=== PATIENT | female | born 1990 | race Caucasian/White ===

== ENCOUNTER 2019-07-09 | Emergency (ER) | payer SELFPAY | END 2019-07-09 17:06 | disposition home or self-care (01) | CPT/HCPCS: 81003; 81025; 99283 ==

== ENCOUNTER 2019-07-29 11:53 | Emergency (ER) | payer SELFPAY ==
--- OUTSIDE RECORDS SUMMARY | 2019-07-29 11:56 | XMS REPORT ---
:1990 Author Organization [facility] t Address [address] [place] [address] Care Team Providers Name Role Phone CURLY Unavailable Unavailable Problems This patient has no known problems. Allergies, Adverse Reactions, Alerts This patient has no known allergies or adverse reactions. Medications This patient has no known medications. Results Test Description Test Time Test Comments Text Results Atomic Results Result Comments LIPASE 2017-09-10 14:27:00 Test Item Value Reference Range Comments LIPASE (BEAKER) (test code = 749) 21 U/L 8-78 COMPREHENSIVE METABOLIC [id number] 14:27:00 Test Item Value Reference Range Comments TOTAL PROTEIN (BEAKER) 7.1 gm/dL 6.0-8.5 (test code = 770) ALBUMIN (BEAKER) (test 4.1 g/dL 3.5-5.0 code = 1145) ALKALINE PHOSPHATASE 98 U/L 30-115 (BEAKER) (test code = 346) BILIRUBIN TOTAL (BEAKER) 0.6 mg/dL 0.1-1.3 (test code = 377) SODIUM (BEAKER) (test code 139 meq/L 135-148 = 381) POTASSIUM (BEAKER) (test 4.3 meq/L 3.5-5.5 code = 379) CHLORIDE (BEAKER) (test 106 meq/L 98-106 code = 382) CO2 (BEAKER) (test code = 27 meq/L 20-31 355) BLOOD UREA NITROGEN 17 mg/dL 10-26 (BEAKER) (test code = 354) CREATININE (BEAKER) (test 0.70 mg/dL 0.50-1.20 code = 358) GLUCOSE RANDOM (BEAKER) 97 mg/dL 70-110 (test code = 652) CALCIUM (BEAKER) (test 9.4 mg/dL 8.5-10.5 code = 697) AST (SGOT) (BEAKER) (test 21 U/L 5-40 code = 353) ALT (SGPT) (BEAKER) (test 40 U/L 6-50 code = 347) EGFR (BEAKER) (test code = 100 mL/min/1.73 sq ES TIMATED GFR IS NOT 1092) m ACCURATE CREA TININE CLEARANCE IN PRE DICTING GLOMERULAR FILTR ATION RATE. ESTIMATED GFR IS NOT APPLICABLE F OR DIALYSIS PATIENT S. CBC W/PLT COUNT & AUTO [id number] 14:06:00 Test Item Value Reference Range Comments WHITE BLOOD CELL COUNT (BEAKER) (test code = 11.7 K/ L 4.0 -10.0 775) RED BLOOD CELL COUNT (BEAKER) (test code = 761) 4.99 M/ L 4.00-5.00 HEMOGLOBIN (BEAKER) (test code = 410) 13.6 GM/DL 12.0-15.0 HEMATOCRIT (BEAKER) (test code = 411) 42.8 % 36.0-45.0 MEAN CORPUSCULAR VOLUME (BEAKER) (test code = 85.8 fL 82 .0-99.0 753) MEAN CORPUSCULAR HEMOGLOBIN (BEAKER) (test code 27.2 pg 27.0-33.0 = 751) MEAN CORPUSCULAR HEMOGLOBIN CONC (BEAKER) (test 31.7 GM/DL 32.0-36.0 code = 752) RED CELL DISTRIBUTION WIDTH (BEAKER) (test code 13.0 % 12.0-15.0 = 412) PLATELET COUNT (BEAKER) (test code = 756) 282 K/CU MM 150-43 0 MEAN PLATELET VOLUME (BEAKER) (test code = 754) 9.1 fL 6.5-10.5 NUCLEATED RED BLOOD CELLS (BEAKER) (test code = 0 /100 WBC 0-0 413) NEUTROPHILS RELATIVE PERCENT (BEAKER) (test code 68 % = 429) LYMPHOCYTES RELATIVE PERCENT (BEAKER) (test code 22 % = 430) MONOCYTES RELATIVE PERCENT (BEAKER) (test code = 6 % 431) EOSINOPHILS RELATIVE PERCENT (BEAKER) (test code 5 % = 432) BASOPHILS RELATIVE PERCENT (BEAKER) (test code = 0 % 437) NEUTROPHILS ABSOLUTE COUNT (BEAKER) (test code = 7.90 K/ L 1.80-8.00 670) LYMPHOCYTES ABSOLUTE COUNT (BEAKER) (test code = 2.60 K/ L 1.48-4.50 414) MONOCYTES ABSOLUTE COUNT (BEAKER) (test code = 0.70 K/ L 0 .00-1.30 415) EOSINOPHILS ABSOLUTE COUNT (BEAKER) (test code = 0.60 K/ L 0.00-0.50 416) BASOPHILS ABSOLUTE COUNT (BEAKER) (test code = 0.00 K/ L 0 .00-0.20 417) URINALYSIS W/ [id number] 13:09:00 Test Item Value Reference Range Comments COLOR (BEAKER) (test code = 470) Yellow CLARITY (BEAKER) (test code = 469) Clear SPECIFIC GRAVITY UA (BEAKER) (test code = 468) 1.019 1 .001-1.035 PH UA (BEAKER) (test code = 467) 7.0 5.0-8.0 PROTEIN UA (BEAKER) (test code = 464) Negative Negative GLUCOSE UA (BEAKER) (test code = 365) Negative Negative KETONES UA (BEAKER) (test code = 371) Negative Negative BILIRUBIN UA (BEAKER) (test code = 462) Negative Negative BLOOD UA (BEAKER) (test code = 461) Negative Negative NITRITE UA (BEAKER) (test code = 465) Negative Negative LEUKOCYTE ESTERASE UA (BEAKER) (test code = 466) Negative Negative UROBILINOGEN UA (BEAKER) (test code = 463) < mg/dL 0.2-1 .0 RBC UA (BEAKER) (test code = 519) < /HPF WBC UA (BEAKER) (test code = 520) 1 /HPF BACTERIA (BEAKER) (test code = 517) Occasional SQUAMOUS EPITHELIAL (BEAKER) (test code = 516) < /HPF SOURCE(BEAKER) (test code = 279) SCREEN, [id number] 13:04:00 Test Item Value Reference Range Comments TEST URINE (BEAKER) (test code = 583) Negative SCREEN, [id number] 21:36:00 Test Item Value Reference Range Comments TEST URINE (BEAKER) (test code = 583) Negative URINALYSIS W/ REFLEX URINE [id number] 21:36:00 Test Item Value Reference Range Comments COLOR (BEAKER) (test code = 470) Yellow CLARITY (BEAKER) (test code = 469) Clear SPECIFIC GRAVITY UA (BEAKER) (test code = 468) 1.017 1 .001-1.035 PH UA (BEAKER) (test code = 467) 6.0 5.0-8.0 PROTEIN UA (BEAKER) (test code = 464) Negative Negative GLUCOSE UA (BEAKER) (test code = 365) Negative Negative KETONES UA (BEAKER) (test code = 371) Negative Negative BILIRUBIN UA (BEAKER) (test code = 462) Negative Negative BLOOD UA (BEAKER) (test code = 461) Negative Negative NITRITE UA (BEAKER) (test code = 465) Negative Negative LEUKOCYTE ESTERASE UA (BEAKER) (test code = 466) Negative Negative UROBILINOGEN UA (BEAKER) (test code = 463) 2.0 mg/dL 0.2-1 .0 RBC UA (BEAKER) (test code = 519) 1 /HPF WBC UA (BEAKER) (test code = 520) 1 /HPF BACTERIA (BEAKER) (test code = 517) Rare SQUAMOUS EPITHELIAL (BEAKER) (test code = 516) 1 /HPF SOURCE(BEAKER) (test code = 2706)
[2019-07-29 12:39] LABS: Urine Blood NEGATIVE (NEG); Urine Glucose NEGATIVE (NEG); Urine Protein NEGATIVE (NEG); Urine Specific Gravity 1.025 (1.005-1.030)
--- NOTE | 2019-07-29 14:03 | RAD REPORT ---
EXAM DESCRIPTION: US - Transvaginal Study Probe - 07/29/2019 1:54 pm CLINICAL HISTORY: ABD PAIN, pelvic pain Preliminary findings provided at the time of the study. COMPARISON: No comparisons TECHNIQUE: Endovaginal sonography was performed. FINDINGS: Endometrial stripe is 8 mm in thickness. No focal endometrial mass, polyp or fluid collect ion identifiable. No myometrial mass. Uterus is normal in size measuring 7.7 x 3.1 x 3.5 cm. No blood or fluid in the cul de sac. Normal size right ovary seen with normal blood flow pattern. No suspicious right ovarian or right adn exal finding. Left ovary was obscured by bowel. No left adnexal mass identifiable. IMPRESSION: Uterus, right ovary and right adnexa show no suspicious findings. Nonvisualization of the left ovary. No left adnexal abnormality seen.
--- NOTE | 2019-07-29 14:10 | ER ---
Nurse's Notes [facility] Name: Martina Morales Age: 28 yrs Sex: Female : 1990 Arrival Date: 07/29/2019 Time: 11:56 Bed 13 Private MD: Diagnosis: Abdominal and pelvic pain Presentation: 07/28 12:05 Chief complaint: Lower abdominal pain x 4 days. Coronavirus screen: Proceed with normal hb triage. Ebola Screen: No symptoms or risks identified at this time. Initial Sepsis Screen: Does the patient meet any 2 criteria? No. Patient's initial sepsis screen is negative. Does the patient have a suspected source of infection? No. Patient's initial sepsis screen is negative. Risk Assessment: Do you want to hurt yourself or someone else? Patient reports no desire to harm self or others. Onset of symptoms was July 25, 2019. 12:05 Method Of Arrival: Ambulatory hb 12:05 Acuity: JORGE 3 hb Triage Assessment: 12:08 General: Appears in no apparent distress. Behavior is calm, cooperative. Pain: Pain hb currently is 4 out of 10 on a pain scale. EENT: No signs and/or symptoms were reported regarding the EENT system. Neuro: Level of Consciousness is awake, alert, obeys commands, Oriented to person, place, time, situation. Cardiovascular: Capillary refill < 3 seconds. Respiratory: Airway is patent Respiratory effort is even, unlabored, Respiratory pattern is regular, symmetrical. GI: Reports lower abdominal pain. : No signs and/or symptoms were reported regarding the genitourinary system. Derm: Skin is pink, warm \T\ dry. Musculoskeletal: No signs and/or symptoms reported regarding the musculoskeletal system. 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 - Social history:: Smoking status: Patient denies any tobacco usage or history of. Screenin:09 Abuse screen: Denies threats or abuse. Denies injuries from another. Nutritional hb screening: No deficits noted. Tuberculosis screening: No symptoms or risk factors identified. Fall Risk None identified. Assessment: 12:09 General: see triage. hb 14:00 Reassessment: Patient appears in no apparent distress at this time. Patient and/or vc family updated on plan of care and expected duration. Pain level reassessed. Patient is alert, oriented x 3, equal unlabored respirations, skin warm/dry/pink. Neuro: Level of Consciousness is awake, alert, obeys commands, Oriented to person, place, time, situation, Appropriate for age. Cardiovascular: No deficits noted. Respiratory: No deficits noted. Vital Signs: 12:05 BP 143 / 93; Pulse 89; Resp 16; Temp 97.9; Pulse Ox 100% ; Weight 145.15 kg; Height 5 hb ft. 8 in. (172.72 cm); Pain 4/10; 14:00 BP 132 / 80; Pulse 96; Resp 17; Pulse Ox 100% on R/A; vc 12:05 Body Mass Index 48.66 (145.15 kg, 172.72 cm) hb ED Course: 11:56 Patient arrived in ED. mr 11:58 Tiera Best FNP-C is PSYCHIATRIC. kb 11:58 Rubén Jewell MD is Attending Physician. kb 12:05 Janice Bills, BIA is Primary Nurse. ll1 12:06 Triage completed. hb 12:07 Arm band placed on. hb 12:09 Patient has correct armband on for positive identification. Bed in low position. Call hb light in reach. Side rails up X 1. 12:58 No provider procedures requiring assistance completed. Patient did not have IV access ll1 during this emergency room visit. 13:55 US Transvaginal Study (Probe) In Process Unspecified. EDMS 14:16 Primary Nurse role handed off by Janice Bills RN 14:16 Fay Mejia RN is Primary Nurse. vc Administered Medications: No medications were administered Outcome: 14:09 Discharge ordered by . kb 14:20 Discharged to home ambulatory. vc 14:20 Condition: good 14:20 Discharge instructions given to patient, Instructed on discharge instructions, follow up and referral plans. Demonstrated understanding of instructions, follow-up care. 14:22 Patient left the ED. vc Signatures: Dispatcher [employer] EDGA Tiera Best FNP-C FNP-Ckb Elo ValeraSissy RN RN Fay Mejia RN RN Sanju, Lynsay, RN RN ll1
--- NOTE | 2019-07-29 14:11 | EDPHYS ---
Physician Documentation [facility] Name: Martina Morales Age: 28 yrs Sex: Female : 1990 Arrival Date: 07/29/2019 Time: 11:56 Bed 13 Private MD: ED Physician Rubén Jewell HPI: 07/28 12:48 This 28 yrs old Female presents to ER via Ambulatory with complaints of Cyst. kb 12:48 The patient presents with abdominal pain. Onset: The symptoms/episode began/occurred kb "months ago". The symptoms do not radiate. Associated signs and symptoms: Pertinent positives: vaginal bleeding, Pertinent negatives: nausea, vomiting, and diarrhea, fever, shortness of breath. The symptoms are described as constant, waxing/waning. Modifying factors: The symptoms are alleviated by nothing, the symptoms are aggravated by nothing. Severity of pain: At its worst the pain was moderate in the emergency department the pain is unchanged. The patient has experienced similar episodes in the past. The patient has been recently seen by a physician:. Pt reports she has a history of PCOS and recently had a cyst rupture. States she was seen here on Saturday and they told her it was a ruptured cyst. States she came today because she needs a work note from when she came on Saturday. [facility] [employer] [facility] so a work note could not be given. Pt checked in to be seen for cyst again and to get a work note. States symptoms are improving. 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 - Social history:: Smoking status: Patient denies any tobacco usage or history of. ROS: 12:46 Constitutional: Negative for fever, chills, and weight loss, Cardiovascular: Negative kb for chest pain, palpitations, and edema, Respiratory: Negative for shortness of breath, cough, wheezing, and pleuritic chest pain, Back: Negative for injury and pain, MS/Extremity: Negative for injury and deformity, Skin: Negative for injury, rash, and discoloration, Neuro: Negative for headache, weakness, numbness, tingling, and seizure. 12:46 Abdomen/GI: Positive for abdominal pain, Negative for nausea, vomiting, and diarrhea, constipation. 12:47 : Positive for vaginal bleeding. kb Exam: 12:48 Constitutional: This is a well developed, well nourished patient who is awake, alert, kb and in no acute distress. Head/Face: Normocephalic, atraumatic. Chest/axilla: Normal chest wall appearance and motion. Nontender with no deformity. No lesions are appreciated. Cardiovascular: Regular rate and rhythm with a normal S1 and S2. No gallops, murmurs, or rubs. Normal PMI, no JVD. No pulse deficits. Respiratory: Lungs have equal breath sounds bilaterally, clear to auscultation and percussion. No rales, rhonchi or wheezes noted. No increased work of breathing, no retractions or nasal flaring. Abdomen/GI: Soft, non-tender, with normal bowel sounds. No distension or tympany. No guarding or rebound. No evidence of tenderness throughout. Back: No spinal tenderness. No costovertebral tenderness. Full range of motion. Skin: Warm, dry with normal turgor. Normal color with no rashes, no lesions, and no evidence of cellulitis. MS/ Extremity: Pulses equal, no cyanosis. Neurovascular intact. Full, normal range of motion. Neuro: Awake and alert, GCS 15, oriented to person, place, time, and situation. Cranial nerves II-XII grossly intact. Motor strength 5/5 in all extremities. Sensory grossly intact. Cerebellar exam normal. Normal gait. Vital Signs: 12:05 BP 143 / 93; Pulse 89; Resp 16; Temp 97.9; Pulse Ox 100% ; Weight 145.15 kg; Height 5 hb ft. 8 in. (172.72 cm); Pain 4/10; 14:00 BP 132 / 80; Pulse 96; Resp 17; Pulse Ox 100% on R/A; vc 12:05 Body Mass Index 48.66 (145.15 kg, 172.72 cm) hb MDM: 11:59 Patient medically screened. kb 12:47 Data reviewed: vital signs, nurses notes. Data interpreted: Pulse oximetry: on room air kb is 100 %. Interpretation: normal. Counseling: I had a detailed discussion with the patient and/or guardian regarding: the historical points, exam findings, and any diagnostic results supporting the discharge/admit diagnosis, lab results, radiology results, the need for outpatient follow up, an OB/Gyne specialist, to return to the emergency department if symptoms worsen or persist or if there are any questions or concerns that arise at home. 07/28 12:20 Order name: Urine Dipstick--Ancillary (enter results); Complete Time: 12:41 bd 07/28 12:20 Order name: Urine --Ancillary (enter results); Complete Time: 12:41 bd 07/28 12:04 Order name: US Transvaginal Study (Probe); Complete Time: 14:09 kb 07/28 12:10 Order name: Urine Test (obtain specimen); Complete Time: 12:15 kb 07/28 12:10 Order name: Urine Dipstick-Ancillary (obtain specimen); Complete Time: 12:15 kb Administered Medications: No medications were administered Disposition: 17:28 Co-signature as Attending Physician, Rubén Jewell MD I agree with the assessment and kdr plan of care. Disposition: 07/29/19 14:09 Discharged to Home. Impression: Abdominal and pelvic pain. - Condition is Stable. - Discharge Instructions: Pelvic Pain, Female, [id number]. - Work release form, Medication Reconciliation Form, Thank You Letter, Antibiotic Education, Prescription Opioid Use form. - Follow up: Emergency Department; When: As needed; Reason: Worsening of condition. Follow up: Private Physician; When: 2 - 3 days; Reason: Recheck today's complaints, Continuance of care, Re-evaluation by your physician. Signatures: Dispatcher [employer] EDWA Teira Best, CHASER TAR-C CHASER TAR-Rubén Storey MD MD [facility] Sissy Gunderson RN RN hb Calcote, Vanessa, RN RN vc Corrections: (The following items were deleted from the chart) 12:48 12:46 Constitutional: Negative for fever, chills, and weight loss, Cardiovascular: kb Negative for chest pain, palpitations, and edema, Respiratory: Negative for shortness of breath, cough, wheezing, and pleuritic chest pain, Back: Negative for injury and pain, : Negative for injury, bleeding, discharge, and swelling, MS/Extremity: Negative for injury and deformity, Skin: Negative for injury, rash, and discoloration, Neuro: Negative for headache, weakness, numbness, tingling, and seizure, kb 14:22 14:09 07/29/2019 14:09 Discharged to Home. Impression: Abdominal and pelvic pain. vc Condition is Stable. Forms are Medication Reconciliation Form, Thank You Letter, Antibiotic Education, Prescription Opioid Use. Follow up: Emergency Department; When: As needed; Reason: Worsening of condition. Follow up: Private Physician; When: 2 - 3 days; Reason: Recheck today's complaints, Continuance of care, Re-evaluation by your physician. kb
[2019-07-29 14:26] VITALS: BP 143/93; TEMP 97.9; O2SAT 100
== END 2019-07-29 14:22 | disposition home or self-care (01) ==
LOC: ER 11:53
DX: R10.9 Unspecified abdominal pain (principal); R10.2 Pelvic and perineal pain
CPT/HCPCS: 76830; 81003; 81025; 99283

== ENCOUNTER 2019-09-22 13:00 | Emergency (ER) | payer SELFPAY ==
--- OUTSIDE RECORDS SUMMARY | 2019-09-22 14:13 | XMS REPORT | Clinical Summary ---
:1990 Author Organization [facility] Address [address] [place] [address] Care Team Providers Name Role Phone Pcp Primary Care Provider Unavailable Allergies No Known Allergies Medications Medication Sig Dispensed Refills Start Date End Date Status famotidine (PEPCID) 40 Take 1 tablet (40 20 tablet 0 8 Active MG tablet mg total) by mouth every night as needed for Heartburn. Active Problems Not on file Social History Tobacco Use Types Packs/Day Years Used Date Current Every Day Smoker Cigarettes 0.5 Smokeless Tobacco: Never Used Alcohol Use Drinks/Week oz/Week Comments Yes Sex Assigned at Date Recorded Not on file Job Start Date Occupation Industry Not on file Not on file Not on file Travel History Travel Start Travel End No recent travel history available. Last Filed Vital Signs Not on file Plan of Treatment Not on file Results Not on fileafter 09/21/2018
--- OUTSIDE RECORDS SUMMARY | 2019-09-22 14:13 | XMS REPORT | Clinical Summary ---
:1990 Author Organization [facility] Address [address] [place] [address] Care Team Providers Name Role Phone Asked, No Pcp Primary Care Provider Unavailable Allergies Active Allergy Reactions Severity Noted Date Comments Diphenhydramine Hcl Hives 03/06/2018 Medications Medication Sig Dispensed Refills Start Date End Date Status DM/PE/acetaminophen/doxyl Take by mouth. 0 Active amine (VICKS DAYQUIL-NYQUIL ORAL) chlorpheniramine/dextrome Take by mouth. 0 Active pascual (ROBITUSSIN COUGH & COLD ORAL) Active Problems Not on file Social History Tobacco Use Types Packs/Day Years Used Date Current Every Day Smoker Smokeless Tobacco: Never Used Sex Assigned at Date Recorded Not on file Job Start Date Occupation Industry Not on file Not on file Not on file Travel History Travel Start Travel End No recent travel history available. 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
--- OUTSIDE RECORDS SUMMARY | 2019-09-22 14:14 | XMS REPORT | Continuity of Care Document ---
:1990 Author Organization [facility] t Address [address] [place] [address] Care Team Providers Name Role Phone Pcp Primary Care Physician Unavailable CURLY Attending Clinician Unavailable Problems This patient has no known problems. Allergies, Adverse Reactions, Alerts Allergy Allergy Status Severity Reaction(s) Onset Inactive Treating Comm ents Source Name Type Date Date Clinician Diphenhy Propensi Active Hives 2017-04 [place] dramine ty to 05-07 Methodi Hcl adverse 00:00: st reaction 00 s to drug Social History Social Habit Start Date Stop Date Quantity Comments Source History of tobacco Cigarette Smoker [facility] Sex Assigned At [place] [facility] Alcohol Comment 2018-03-06 2018-03-06 [facility] 00:00:00 00:00:00 Gnosticism Cigarettes smoked 2017-09-10 2017-09-10 [facility] - current (pack per 00:00:00 [facility] day) - Reported Smoking Status Start Date Stop Date Source Current every day smoker 2018-03-06 00:00:00 [facility] Medications Ordered Filled Start Stop Current Ordering Indication Dosage Frequency Signature Comments Components Source Medication Medication Date Date Medication? Clinician (SIG) Name Name DM/PE/aceta 2017-04 Yes Take by Tank kern minophen/do 2-06 mouth. Method i xylamine 08:43: st (VICKS 21 DAYQUIL-NYQ UIL ORAL) chlorphenir 2017-04 Yes Take by Tank kern amine/dextr 2-06 mouth. Method i omethorp 08:43: st (ROBITUSSIN 21 COUGH & COLD ORAL) famotidine Yes 40mg Take 1 [facility] (PEPCID) 40 6-12 tablet (40 Sheila kes - MG tablet 00:00: mg total) Med ical 00 by mouth Center every night as needed for Heartburn. Procedures This patient has no known procedures. Plan of Care Planned Activity Planned Date Details Comments Source Future Scheduled 2019-10-31 INFLUENZA VACCINE [facility] Test 00:00:00 [code = INFLUENZA VACCINE] Future Scheduled 2009 Screening for [facility] 00:00:00 malignant neoplasm of cervix (procedure) [code = 764899196] Results Test Description Test Time Test Comments Results Result Comments Source LIPASE 2017-09-10 14:27:00 Test Item Value Reference Range Interpretation Comme nts LIPASE (BEAKER) (test code = 749) 21 U/L 8-78 COMPREHENSIVE METABOLIC [id number] 14:27:00 Test Item Value Reference Range Interpretation Comments TOTAL PROTEIN 7.1 gm/dL 6.0-8.5 (BEAKER) (test code = 770) ALBUMIN (BEAKER) 4.1 g/dL 3.5-5.0 (test code = 1145) ALKALINE PHOSPHATASE 98 U/L 30-115 (BEAKER) (test code = 346) BILIRUBIN TOTAL 0.6 mg/dL 0.1-1.3 (BEAKER) (test code = 377) SODIUM (BEAKER) (test 139 meq/L 135-148 code = 381) POTASSIUM (BEAKER) 4.3 meq/L 3.5-5.5 (test code = 379) CHLORIDE (BEAKER) 106 meq/L 98-106 (test code = 382) CO2 (BEAKER) (test 27 meq/L 20-31 code = 355) BLOOD UREA NITROGEN 17 mg/dL 10-26 (BEAKER) (test code = 354) CREATININE (BEAKER) 0.70 mg/dL 0.50-1.20 (test code = 358) GLUCOSE RANDOM 97 mg/dL 70-110 (BEAKER) (test code = 652) CALCIUM (BEAKER) 9.4 mg/dL 8.5-10.5 (test code = 697) AST (SGOT) (BEAKER) 21 U/L 5-40 (test code = 353) ALT (SGPT) (BEAKER) 40 U/L 6-50 (test code = 347) EGFR (BEAKER) (test 100 ESTIMATE D GFR IS code = 1092) mL/min/1.73 sq NOT ACCURA TE m CREATININE CLEARANCE IN PREDICTING GLOMERULAR FILTRATION RATE . ESTIMATED GFR I S NOT APPLICABLE FOR DIALYSIS PATIEN TS. CBC W/PLT COUNT & AUTO [id number] 14:06:00 Test Item Value Reference Range Interpretation Comments WHITE BLOOD CELL COUNT (BEAKER) 11.7 K/ L 4.0-10.0 H (test code = 775) RED BLOOD CELL COUNT (BEAKER) 4.99 M/ L 4.00-5.00 (test code = 761) HEMOGLOBIN (BEAKER) (test code = 13.6 GM/DL 12.0-15.0 410) HEMATOCRIT (BEAKER) (test code = 42.8 % 36.0-45.0 411) MEAN CORPUSCULAR VOLUME (BEAKER) 85.8 fL 82.0-99.0 (test code = 753) MEAN CORPUSCULAR HEMOGLOBIN 27.2 pg 27.0-33.0 (BEAKER) (test code = 751) MEAN CORPUSCULAR HEMOGLOBIN CONC 31.7 GM/DL 32.0-36.0 L (BEAKER) (test code = 752) RED CELL DISTRIBUTION WIDTH 13.0 % 12.0-15.0 (BEAKER) (test code = 412) PLATELET COUNT (BEAKER) (test 282 K/CU MM 150-430 code = 756) MEAN PLATELET VOLUME (BEAKER) 9.1 fL 6.5-10.5 (test code = 754) NUCLEATED RED BLOOD CELLS 0 /100 WBC 0-0 (BEAKER) (test code = 413) NEUTROPHILS RELATIVE PERCENT 68 % (BEAKER) (test code = 429) LYMPHOCYTES RELATIVE PERCENT 22 % (BEAKER) (test code = 430) MONOCYTES RELATIVE PERCENT 6 % (BEAKER) (test code = 431) EOSINOPHILS RELATIVE PERCENT 5 % (BEAKER) (test code = 432) BASOPHILS RELATIVE PERCENT 0 % (BEAKER) (test code = 437) NEUTROPHILS ABSOLUTE COUNT 7.90 K/ L 1.80-8.00 (BEAKER) (test code = 670) LYMPHOCYTES ABSOLUTE COUNT 2.60 K/ L 1.48-4.50 (BEAKER) (test code = 414) MONOCYTES ABSOLUTE COUNT (BEAKER) 0.70 K/ L 0.00-1.30 (test code = 415) EOSINOPHILS ABSOLUTE COUNT 0.60 K/ L 0.00-0.50 H (BEAKER) (test code = 416) BASOPHILS ABSOLUTE COUNT (BEAKER) 0.00 K/ L 0.00-0.20 (test code = 417) URINALYSIS W/ [id number] 13:09:00 Test Item Value Reference Range Interpretation Comments COLOR (BEAKER) (test code = 470) Yellow CLARITY (BEAKER) (test code = 469) Clear SPECIFIC GRAVITY UA (BEAKER) (test 1.019 1.001-1.035 code = 468) PH UA (BEAKER) (test code = 467) 7.0 5.0-8.0 PROTEIN UA (BEAKER) (test code = Negative Negative 464) GLUCOSE UA (BEAKER) (test code = Negative Negative 365) KETONES UA (BEAKER) (test code = Negative Negative 371) BILIRUBIN UA (BEAKER) (test code = Negative Negative 462) BLOOD UA (BEAKER) (test code = Negative Negative 461) NITRITE UA (BEAKER) (test code = Negative Negative 465) LEUKOCYTE ESTERASE UA (BEAKER) Negative Negative (test code = 466) UROBILINOGEN UA (BEAKER) (test < mg/dL 0.2-1.0 code = 463) RBC UA (BEAKER) (test code = 519) < /HPF WBC UA (BEAKER) (test code = 520) 1 /HPF BACTERIA (BEAKER) (test code = Occasional 517) SQUAMOUS EPITHELIAL (BEAKER) (test < /HPF code = 516) SOURCE(BEAKER) (test code = 2795) SCREEN, [id number] 13:04:00 Test Item Value Reference Range Interpretation Comments TEST URINE (BEAKER) (test Negative code = 583) SCREEN, [id number] 21:36:00 Test Item Value Reference Range Interpretation Comments TEST URINE (BEAKER) (test Negative code = 583) URINALYSIS W/ REFLEX URINE [id number] 21:36:00 Test Item Value Reference Range Interpretation Comments COLOR (BEAKER) (test code = 470) Yellow CLARITY (BEAKER) (test code = 469) Clear SPECIFIC GRAVITY UA (BEAKER) (test 1.017 1.001-1.035 code = 468) PH UA (BEAKER) (test code = 467) 6.0 5.0-8.0 PROTEIN UA (BEAKER) (test code = Negative Negative 464) GLUCOSE UA (BEAKER) (test code = Negative Negative 365) KETONES UA (BEAKER) (test code = Negative Negative 371) BILIRUBIN UA (BEAKER) (test code = Negative Negative 462) BLOOD UA (BEAKER) (test code = 461) Negative Negative NITRITE UA (BEAKER) (test code = Negative Negative 465) LEUKOCYTE ESTERASE UA (BEAKER) Negative Negative (test code = 466) UROBILINOGEN UA (BEAKER) (test code 2.0 mg/dL 0.2-1.0 H = 463) RBC UA (BEAKER) (test code = 519) 1 /HPF WBC UA (BEAKER) (test code = 520) 1 /HPF BACTERIA (BEAKER) (test code = 517) Rare SQUAMOUS EPITHELIAL (BEAKER) (test 1 /HPF code = 516) SOURCE(BEAKER) (test code = 2795)
--- NOTE | 2019-09-22 15:29 | RAD REPORT ---
EXAM DESCRIPTION: Charles Cartagena (2 Views)09/22/2019 2:50 pm CLINICAL HISTORY: Cough COMPARISON: 2014 FINDINGS: The lungs appear clear of acute infiltrate. The heart is normal size IMPRESSION: No acute abnormalities displayed
--- NOTE | 2019-09-22 16:41 | ER ---
Nurse's Notes [facility] Name: Martina Morales Age: 28 yrs Sex: Female : 1990 Arrival Date: 09/22/2019 Time: 13:02 Bed 18 Private MD: Diagnosis: Acute upper respiratory infection, unspecified Presentation: 09/21 13:22 Chief complaint: Patient states: I had fever on Saturday and Saturday, Htemp 101.5F. I ca1 was very dehydrated. I woke Saturday with a cough and feel really sick with body aches, headaches and a little SOB on Saturday. Coronavirus screen: Surgical mask placed on patient. Patient moved to private room, placed in contact and droplet isolation with eye protection until further assessment. Patient reports a cough. Patient reports shortness of breath or difficulty breathing. Patient reports a measured and/or subjective temperature greater than 100.4F. Patient denies travel on a cruise ship or to a country the [facility] currently lists as an affected area. Patient reports contact with known and/or suspected case of COVID-19. My 's co-worker tested positive which I had contact with. Ebola Screen: Patient negative for fever greater than or equal to 101.5 degrees Fahrenheit, and additional compatible Ebola Virus Disease symptoms Patient denies exposure to infectious person. Patient denies travel to an Ebola-affected area in the 21 days before illness onset. No symptoms or risks identified at this time. Initial Sepsis Screen: Does the patient meet any 2 criteria? No. Patient's initial sepsis screen is negative. Does the patient have a suspected source of infection? No. Patient's initial sepsis screen is negative. Risk Assessment: Do you want to hurt yourself or someone else? Patient reports no desire to harm self or others. Onset of symptoms was September 22, 2019. 13:22 Method Of Arrival: Ambulatory ca1 13:22 Acuity: JORGE 3 ca1 Triage Assessment: 14:20 General: Appears in no apparent distress. Behavior is calm, cooperative. Neuro: Level ls4 of Consciousness is awake, alert, obeys commands, Denies weakness blurred vision dizziness, difficulty swallowing, paresthesias numbness headache photophobia diplopia. Cardiovascular: Denies chest pain. Respiratory: Reports cough that is non-productive, Airway is patent Respiratory effort is even, unlabored, Respiratory pattern is regular, Breath sounds are clear bilaterally. : No deficits noted. No signs and/or symptoms were reported regarding the genitourinary system. Derm: No deficits noted. No signs and/or symptoms reported regarding the dermatologic system. Musculoskeletal: No deficits noted. No signs and/or symptoms reported regarding the musculoskeletal system. SURGICAL SPECIALIST: 13:26 LMP N/A - Irregular menses ca1 Historical: - Allergies: 13: No Known Allergies; ca1 - Home Meds: 13: None [Active]; ca1 - PMHx: 13:26 None; ca1 - PSHx: 13:26 Cholecystectomy; ca1 - Immunization history:: Adult Immunizations up to date. - Social history:: Smoking status: Patient reports the use of cigarette tobacco products, denies chronic smoking, but will smoke occasionally. Screenin:16 Abuse screen: Denies threats or abuse. Denies injuries from another. Nutritional ls4 screening: No deficits noted. Tuberculosis screening: No symptoms or risk factors identified. Fall Risk None identified. Assessment: 14:02 General: Appears in no apparent distress. comfortable, Behavior is calm, cooperative. ls4 Pain:. Neuro: Level of Consciousness is awake, alert, obeys commands, Oriented to person, place, time, situation, 14:02 Cardiovascular: Denies chest pain. Respiratory: Reports cough that is non-productive, ls4 dry, Airway is patent Respiratory effort is even, unlabored, Respiratory pattern is regular, Breath sounds are clear bilaterally. GI: No deficits noted. No signs and/or symptoms were reported involving the gastrointestinal system. : No deficits noted. No signs and/or symptoms were reported regarding the genitourinary system. Derm: Skin is pink, warm \T\ dry. Musculoskeletal: No deficits noted. No signs and/or symptoms reported regarding the musculoskeletal system. Vital Signs: 13:22 BP 132 / 93; Pulse 99; Resp 19 S; Temp 97.6(TE); Pulse Ox 98% on R/A; Weight 131.54 kg ca1 (R); Height 5 ft. 8 in. (172.72 cm) (R); 14:00 BP 138 / 78; Pulse 77; Resp 18; Pulse Ox 99% on R/A; Pain 0/10; ls4 15:00 BP 128 / 77; Pulse 88; Resp 16; Pulse Ox 99% on R/A; Pain 0/10; ls4 17:00 BP 129 / 80; Pulse 79; Resp 18; Temp 97.6; Pulse Ox 99% on R/A; Pain 0/10; ls4 13:22 Body Mass Index 44.09 (131.54 kg, 172.72 cm) ca1 ED Course: 13:02 Patient arrived in ED. as 13:26 Triage completed. ca1 13:26 Arm band placed on right wrist. ca1 13:29 Tiera Best FNP-C is [facility]. kb 13:29 Triston Ratliff MD is Attending Physician. kb 14:00 Dottie Davis, RN is Primary Nurse. ls4 14:16 No apparent distress. ls4 14:16 Patient has correct armband on for positive identification. Bed in low position. Call ls4 light in reach. Side rails up X 1. Pulse ox on. NIBP on. Warm blanket given. Verbal reassurance given. 14:16 No provider procedures requiring assistance completed. Urine collected: clean catch ls4 specimen, clear. 14:50 Chest Pa And Lat (2 Views) XRAY In Process Unspecified. EDMS 17:15 Patient did not have IV access during this emergency room visit. ls4 Administered Medications: No medications were administered Outcome: 16:40 Discharge ordered by MD. kb 17:14 Discharged to home ambulatory. ls4 17:14 Condition: stable 17:14 Discharge instructions given to patient, Instructed on discharge instructions, follow up and referral plans. medication usage, safety practices, Demonstrated understanding of instructions, follow-up care, medications, Prescriptions given X work not to rtw on September 24 17:16 Patient left the ED. ls4 Addendum: 09/25/2019 11:56 Addendum: Other pt notified of negative COVID-19 Swab results. Advised to remain in d m5 isolation until symptom free for 3 days and to return to the ED for worsening symptoms. Signatures: Dispatcher [employer] EDMS Tiera Best FNP-C FNP-Ckb Markwardt, Deana, RN RN Lina Glass Lisa, RN RN ls4 Rubi Fung RN RN ca1
--- NOTE | 2019-09-22 16:41 | EDPHYS ---
Physician Documentation [facility] Name: Martina Morales Age: 28 yrs Sex: Female : 1990 Arrival Date: 09/22/2019 Time: 13:02 Bed 18 Private MD: ED Physician Triston Ratliff HPI: 09/21 16:37 This 28 yrs old Female presents to ER via Ambulatory with complaints of Cough.kb 16:37 The patient has not experienced similar symptoms in the past. The patient has not kb recently seen a physician. 16:38 The patient or guardian reports cough, that is intermittent, described as mild, with no kb sputum, flu symptoms, low-grade fever, myalgias. Onset: The symptoms/episode began/occurred 4 day(s) ago. Severity of symptoms: At their worst the symptoms were moderate, in the emergency department the symptoms are unchanged. Modifying factors: The symptoms are alleviated by nothing, the symptoms are aggravated by nothing. Associated signs and symptoms: Pertinent positives: fever, Pertinent negatives: chest pain, diarrhea, ear ache, nausea, vomiting. Pt reports slight cough, body aches, headache, fever for 4 days. Reports close exposure to COVID positive pt. 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 - Social history:: Smoking status: Patient reports the use of cigarette tobacco products, denies chronic smoking, but will smoke occasionally. ROS: 16:36 Neck: Negative for injury, pain, and swelling, Cardiovascular: Negative for chest pain, kb palpitations, and edema, Abdomen/GI: Negative for abdominal pain, nausea, vomiting, diarrhea, and constipation, Back: Negative for injury and pain, MS/Extremity: Negative for injury and deformity, Skin: Negative for injury, rash, and discoloration, Neuro: Negative for headache, weakness, numbness, tingling, and seizure. 16:36 Constitutional: Positive for body aches, chills, fatigue, fever, malaise. 16:36 ENT: Positive for rhinorrhea, sore throat. 16:36 Respiratory: Positive for cough, Negative for dyspnea on exertion, hemoptysis, orthopnea, pleurisy, shortness of breath, sputum production, wheezing. Exam: 16:36 Constitutional: This is a well developed, well nourished patient who is awake, alert, kb and in no acute distress. Head/Face: Normocephalic, atraumatic. Chest/axilla: Normal chest wall appearance and motion. Nontender with no deformity. No lesions are appreciated. Cardiovascular: Regular rate and rhythm with a normal S1 and S2. No gallops, murmurs, or rubs. Normal PMI, no JVD. No pulse deficits. Respiratory: Lungs have equal breath sounds bilaterally, clear to auscultation and percussion. No rales, rhonchi or wheezes noted. No increased work of breathing, no retractions or nasal flaring. Abdomen/GI: Soft, non-tender, with normal bowel sounds. No distension or tympany. No guarding or rebound. No evidence of tenderness throughout. Skin: Warm, dry with normal turgor. Normal color with no rashes, no lesions, and no evidence of cellulitis. MS/ Extremity: Pulses equal, no cyanosis. Neurovascular intact. Full, normal range of motion. Neuro: Awake and alert, GCS 15, oriented to person, place, time, and situation. Cranial nerves II-XII grossly intact. Motor strength 5/5 in all extremities. Sensory grossly intact. Cerebellar exam normal. Normal gait. Vital Signs: 13:22 BP 132 / 93; Pulse 99; Resp 19 S; Temp 97.6(TE); Pulse Ox 98% on R/A; Weight 131.54 kg ca1 (R); Height 5 ft. 8 in. (172.72 cm) (R); 14:00 BP 138 / 78; Pulse 77; Resp 18; Pulse Ox 99% on R/A; Pain 0/10; ls4 15:00 BP 128 / 77; Pulse 88; Resp 16; Pulse Ox 99% on R/A; Pain 0/10; ls4 17:00 BP 129 / 80; Pulse 79; Resp 18; Temp 97.6; Pulse Ox 99% on R/A; Pain 0/10; ls4 13:22 Body Mass Index 44.09 (131.54 kg, 172.72 cm) ca1 MDM: 14:02 Patient medically screened. kb 16:36 Data reviewed: vital signs, nurses notes. Data interpreted: Pulse oximetry: on room air kb is 98 %. Interpretation: normal. Counseling: I had a detailed discussion with the patient and/or guardian regarding: the historical points, exam findings, and any diagnostic results supporting the discharge/admit diagnosis, lab results, radiology results, the need for outpatient follow up, a family practitioner, to return to the emergency department if symptoms worsen or persist or if there are any questions or concerns that arise at home. 09/21 13:29 Order name: Flu; Complete Time: 16:40 kb 09/21 13:29 Order name: Strep; Complete Time: 16:40 kb 09/21 13:29 Order name: COVID-19 kb 09/21 14:19 Order name: Urine Dipstick--Ancillary (enter results) [facility] 09/21 14:19 Order name: Urine --Ancillary (enter results) [facility] 09/21 16:39 Order name: Throat Culture [facility] 09/21 13:29 Order name: Chest Pa And Lat (2 Views) XRAY; Complete Time: 15:34 kb Administered Medications: No medications were administered Disposition: 09/22 07:13 Co-signature as Attending Physician, Triston Ratliff MD. rn Disposition: 09/22/19 16:40 Discharged to Home. Impression: Acute upper respiratory infection, unspecified. - Condition is Stable. - Discharge Instructions: Viral Respiratory Infection, Qprj-Aj-[id number], COVID-19. - Medication Reconciliation Form, Thank You Letter, Antibiotic Education, Prescription Opioid Use, Work release form form. - Follow up: Emergency Department; When: As needed; Reason: Worsening of condition. Follow up: Private Physician; When: 2 - 3 days; Reason: Recheck today's complaints, Continuance of care, Re-evaluation by your physician. Signatures: Dispatcher [employer] EDCT Tiera Best, MANNEQUIN MAKER-C MANNEQUIN MAKER-Triston Ferrell MD MD rn Stewart, Lisa, RN RN ls4 Rubi Fung RN RN ca1 Corrections: (The following items were deleted from the chart) 09/21 17:16 16:40 09/22/2019 16:40 Discharged to Home. Impression: Acute upper respiratory ls4 infection, unspecified. Condition is Stable. Forms are Work release form, Medication Reconciliation Form, Thank You Letter, Antibiotic Education, Prescription Opioid Use. Follow up: Emergency Department; When: As needed; Reason: Worsening of condition. Follow up: Private Physician; When: 2 - 3 days; Reason: Recheck today's complaints, Continuance of care, Re-evaluation by your physician. kb
[2019-09-22 17:24] VITALS: TEMP 97.6
[2019-09-22 17:25] LABS: Urine Blood NEGATIVE (NEG); Urine Glucose NEGATIVE (NEG); Urine Protein NEGATIVE (NEG); Urine Specific Gravity 1.025 (1.005-1.030); Urine pH 5.5 (5.0-7.0)
[2019-09-22 17:26] VITALS: O2SAT 99
[2019-09-22 17:28] VITALS: BP 129/80
== END 2019-09-22 17:16 | disposition home or self-care (01) ==
LOC: ER 13:00
DX: J06.9 Acute upper respiratory infection, unspecified (principal); Z20.828 Contact with and (suspected) exposure to other viral communicable diseases; Z72.0 Tobacco use
CPT/HCPCS: 71046; 81003; 81025; 87070; 87081; 87804; 99284; U0002

== ENCOUNTER 2019-11-03 16:17 | Emergency (ER) | payer SELFPAY ==
--- OUTSIDE RECORDS SUMMARY | 2019-11-03 17:26 | XMS REPORT | Clinical Summary ---
:1990 Author Organization [facility] Address [address] [place] [address] Care Team Providers Name Role Phone Pcp [...] Not on file Results Not on fileafter 11/02/2018
--- OUTSIDE RECORDS SUMMARY | 2019-11-03 17:26 | XMS REPORT | Clinical Summary ---
:1990 Author Organization [facility] Address [address] [place] [address] Care Team Providers Name Role Phone Asked, [...] INFLUENZA VACCINE 10/31/2019 Results Not on fileafter 11/02/2018 Advance Directives For more information, please contact: [phone] Type Date Recorded Patient Supervisor Operations Explanati on Advance Directives, Living Will 03/06/2018 9:21 AM and Medical Power of Wheelchair Driver
--- OUTSIDE RECORDS SUMMARY | 2019-11-03 17:26 | XMS REPORT | Continuity of Care Document ---
:1990 Author Organization [facility] t Address [address] [place] [address] Care Team Providers Name Role Phone Asked, Pcp Primary Care Physician Unavailable CURLY Attending Clinician Unavailable Problems This patient has no known problems. Allergies, Adverse Reactions, Alerts Allergy Allergy Status Severity Reaction(s) Onset Inactive Treating Comm ents Source Name Type Date Date Clinician Diphenhconor Propensi Active Hives 2017-04 [place] dramine ty to 05-07 Methodi Hcl adverse 00:00: st reaction 00 s to drug Social History Social Habit Start Date Stop Date Quantity Comments Source History of tobacco Cigarette Smoker [facility] Sex Assigned At [facility] Alcohol Comment 2018-03-06 2018-03-06 [facility] 00:00:00 00:00:00 Religion Cigarettes smoked 2017-09-10 2017-09-10 [facility] - current (pack per 00:00:00 [facility]00 [facility] - Reported Smoking Status Start Date Stop Date Source Current every day smoker 2017-09-10 00:00:00 [facility] Medications Ordered Filled Start Stop Current Ordering Indication Dosage Frequency Signature Comments Components Source Medication Medication Date Date Medication? Clinician (SIG) Name Name DM/PE/aceta 2017-04 Yes Take by Tank kern minophen/do 2-06 mouth. Method i xylamine 08:43: st (VICKS 21 DAYQUIL-NYQ UIL ORAL) chlorphenir 2017-04 Yes Take by Takn kern amine/dextr 2-06 mouth. Method i omethorp [...] Source Future Scheduled 2019-10-31 INFLUENZA VACCINE [facility] Test 00:00:00 [code = INFLUENZA VACCINE] Future Scheduled 2009 Screening for [facility] 00:00:00 malignant neoplasm of cervix (procedure) [code = 145586397] Results Test Description Test Time Test Comments Results Result Comments Source LIPASE 2017-09-10 14:27:00 Test Item Value Reference Range Interpretation Comme nts LIPASE (BEAKER) (test code = 749) 21 U/L 8-78 COMPREHENSIVE METABOLIC [id number] 14:27:00 Test Item Value Reference Range Interpretation [...] PATIEN TS. CBC W/PLT COUNT & AUTO [id number] 14:06:00 Test Item Value Reference Range Interpretation [...] 0.00-0.20 (test code = 417) URINALYSIS W/ [id number] 13:09:00 Test Item Value Reference Range Interpretation [...] 516) SOURCE(BEAKER) (test code = 2795) SCREEN, [id number] 13:04:00 Test Item Value Reference Range Interpretation Comments TEST URINE (BEAKER) (test Negative code = 583) SCREEN, [id number] 21:36:00 Test Item Value Reference Range Interpretation Comments TEST URINE (BEAKER) (test Negative code = 583) URINALYSIS W/ REFLEX URINE [id number] 21:36:00 Test Item Value Reference Range Interpretation [...]
[2019-11-03] MEDS ORDERED: ONDANSETRON 4 MG/2 ML VIAL ONE (17:59)
[2019-11-03] MEDS ORDERED: NA CHLORIDE 0.9% 1,000 ML ONE (17:59)
[2019-11-03] MEDS ORDERED: MORPHINE 4 MG/ML SYR ONE (17:59)
[2019-11-03 18:14] LABS: Absolute Lymphocytes (CBC) 2.8 K/uL (0.7-4.9); Basophils % 0.9 % (0-1.3); Hematocrit 46.8 % (36.0-45.0); MPV 9.5 fL (7.6-11.3)
[2019-11-03 18:14] LABS: Urine Blood NEGATIVE (NEG); Urine Glucose NEGATIVE (NEG); Urine Protein NEGATIVE (NEG); Urine Specific Gravity 1.025 (1.005-1.030)
[2019-11-03 18:45] LABS: Albumin 3.8 g/dL (3.4-5.0); Bilirubin Direct 0.1 mg/dL (0-0.2); Bilirubin Total 0.6 mg/dL (0.2-1.0); Potassium 4.2 mmol/L (3.5-5.1)
--- NOTE | 2019-11-03 18:57 | RAD REPORT ---
EXAM DESCRIPTION: CT - Abdomen Pelvis W Contrast - 11/03/2019 6:35 pm CLINICAL HISTORY: Abdominal pain COMPARISON: 2014 TECHNIQUE: Computed axial tomography of the abdomen pelvis was obtained. 100 cc Isovue-300 was admin istered intravenously. Oral contrast was not requested which limits evaluation of bowel. All CT scans are performed using dose optimization technique as appropriate and may include automated exposure control or mA/KV adjustment according to patient size. FINDINGS: Fatty liver Cholecystectomy Spleen, pancreas, adrenal and kidneys appear unremarkable. There is no evidence of diverticulitis. Normal appendix Right and left ovary normal size density. No significant free fluid IMPRESSION: No acute abnormality is displayed.
--- NOTE | 2019-11-03 18:59 | RAD REPORT ---
EXAM DESCRIPTION: US - Transvaginal Study Probe - 11/03/2019 6:26 pm CLINICAL HISTORY: Pelvic pain COMPARISON: none FINDINGS: The uterus measures 7 x 3 x 4cm. A fibroid is not seen. The endometrial stripe measures 8 millimeters. Nabothian cysts within the cervix Right and left adnexa unremarkable. Neither ovary visualized on ultrasound secondary to overlying bow el gas. Ovaries appear normal on CT pelvis done on today's date No significant free fluid is seen. IMPRESSION: Unremarkable pelvic ultrasound
--- NOTE | 2019-11-03 19:03 | ER ---
Nurse's Notes [facility] Name: Martina Morales Age: 28 yrs Sex: Female : 1990 Arrival Date: 11/03/2019 Time: 16:22 Bed 5 Private MD: Diagnosis: Pelvic and perineal pain;Amenorrhea, unspecified Presentation: 11/02 17:09 Chief complaint: Patient states: IT FEELS LIKE SOMETHING IS TRYING TO RIP MY LADY BITS bp OUT. Coronavirus screen: At this time, the client does not indicate any symptoms associated with coronavirus-19. Ebola Screen: No symptoms or risks identified at this time. Initial Sepsis Screen: Does the patient meet any 2 criteria? No. Patient's initial sepsis screen is negative. Does the patient have a suspected source of infection? No. Patient's initial sepsis screen is negative. Risk Assessment: Do you want to hurt yourself or someone else? Patient reports no desire to harm self or others. Onset of symptoms was November 03, 2019 at 03:00. 17:09 Method Of Arrival: Ambulatory bp 17:09 Acuity: JORGE 3 bp Triage Assessment: 17:11 General: Appears in no apparent distress. uncomfortable, obese, Behavior is bp cooperative, appropriate for age, anxious. Pain: Complains of pain in pelvis. EENT: No deficits noted. Neuro: No deficits noted. Cardiovascular: No deficits noted. Respiratory: No deficits noted. GI: No signs and/or symptoms were reported involving the gastrointestinal system. : Reports pain in suprapubic area Denies burning with urination, vaginal bleeding. Derm: No deficits noted. Musculoskeletal: No deficits noted. 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 - Social history:: Smoking status: Patient denies any tobacco usage or history of. - Family history:: not pertinent. Screenin:12 Abuse screen: Denies threats or abuse. Denies injuries from another. Nutritional bp screening: No deficits noted. Tuberculosis screening: No symptoms or risk factors identified. Fall Risk None identified. Assessment: 17:12 General: SEE TRIAGE NOTE. bp 17:53 Reassessment: CT PENDING. VS STABLE ON MONITOR. bp 18:25 Reassessment: PT TO CT WITH PATITO SALVADOR. bp 19:26 Reassessment: Patient appears in no apparent distress at this time. Patient and/or jd3 family updated on plan of care and expected duration. Pain level reassessed. Patient is alert, oriented x 3, equal unlabored respirations, skin warm/dry/pink. pt reported understanding of discharge instructions, even and steady gait upon discharge. Patient states feeling better. General: Appears in no apparent distress. comfortable, Behavior is calm, cooperative, appropriate for age. Neuro: Level of Consciousness is awake, alert, obeys commands, Oriented to person, place, time, situation. Cardiovascular: Denies chest pain, Capillary refill < 3 seconds Patient's skin is warm and dry. Respiratory: Airway is patent Respiratory effort is even, unlabored, Respiratory pattern is regular, symmetrical, Denies cough, shortness of breath. Vital Signs: 17:09 BP 123 / 77; Pulse 85; Resp 16; Temp 98.5; Pulse Ox 99% ; Weight 127.01 kg; Height 5 bp ft. 9 in. (175.26 cm); 17:13 BP 112 / 78; Pulse 90; Resp 17; Pulse Ox 100% ; bp 17:53 BP 128 / 76; Pulse 78; Resp 16; Pulse Ox 97% ; bp 19:27 BP 122 / 99; Pulse 91; Resp 17 S; Pulse Ox 97% on R/A; jd3 17:09 Body Mass Index 41.35 (127.01 kg, 175.26 cm) bp ED Course: 16:22 Patient arrived in ED. ds1 16:37 Tripp Rodriguez, RN is Primary Nurse. bp 16:41 Олег Nieves MD is Attending Physician. moshe 17:10 Triage completed. bp 17:11 Arm band placed on. bp 17:12 Patient has correct armband on for positive identification. Bed in low position. Call bp light in reach. Side rails up X2. 17:42 Radiology exam delayed due to test not completed at this time. vm2 17:50 Inserted saline lock: 20 gauge in right antecubital area, using aseptic technique. bp Blood collected. 18:25 US Transvaginal Study (Probe) In Process Unspecified. EDMS 18:35 CT Abd/Pelvis - IV Contrast Only: iv only In Process Unspecified. EDMS 19:02 Manjula Nicole MD is Referral Physician. [facility] 19:25 No provider procedures requiring assistance completed. IV discontinued, intact, jd3 bleeding controlled, No redness/swelling at site. Pressure dressing applied. Administered Medications: 17:50 Drug: NS 0.9% 1000 ml Route: IV; Rate: 1 bolus; Site: right antecubital; bp 17:50 Drug: morphine 2 mg Route: IVP; Site: right antecubital; bp 17:50 Drug: Zofran (Ondansetron) 4 mg Route: IVP; Site: right antecubital; bp 17:52 Drug: morphine 2 mg Route: IVP; Site: right antecubital; bp Outcome: 19:02 Discharge ordered by . [facility] 19:25 Discharged to home ambulatory, with family. j 19:25 Condition: stable 19:25 Discharge instructions given to patient, Instructed on discharge instructions, follow up and referral plans. medication usage, Demonstrated understanding of instructions, follow-up care, medications, Prescriptions given X 1. 19:28 Patient left the ED. jd3 Signatures: Dispatcher [employer] EDMS Олег Nieves MD MD cha Sanford, Demi ds1 Ela Guerrier vm2 Gareth Quigley RN RN jd3 Tripp Rodriguez, RN RN bp
--- NOTE | 2019-11-03 19:03 | EDPHYS ---
Physician Documentation [facility] Name: Martina Morales Age: 28 yrs Sex: Female : 1990 Arrival Date: 11/03/2019 Time: 16:22 Bed 5 Private MD: SHARLENE Physician Олег Nieves HPI: 11/02 17:35 This 28 yrs old Female presents to ER via Ambulatory with complaints of moshe Pelvic Pain. 17:35 The patient presents with abdominal pain in the lower abdomen. Onset: The moshe symptoms/episode began/occurred 3 day(s) ago. The patient presents with pelvic pain, that is located in/on the right lower quadrant and left lower quadrant. Onset: The symptoms/episode began/occurred 3 day(s) ago. Modifying factors: The symptoms are alleviated by nothing, the symptoms are aggravated by walking. Associated signs and symptoms: Pertinent positives: cramping. Severity of symptoms: At their worst the symptoms were moderate, in the emergency department the symptoms are unchanged. The patient is not sexually active. 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 - Social history:: Smoking status: Patient denies any tobacco usage or history of. - Family history:: not pertinent. ROS: 17:35 Constitutional: Negative for fever, chills, and weight loss, Eyes: Negative for injury, moshe pain, redness, and discharge, ENT: Negative for injury, pain, and discharge, Neck: Negative for injury, pain, and swelling, Cardiovascular: Negative for chest pain, palpitations, and edema, Respiratory: Negative for shortness of breath, cough, wheezing, and pleuritic chest pain, Abdomen/GI: Negative for abdominal pain, nausea, vomiting, diarrhea, and constipation, Back: Negative for injury and pain, MS/Extremity: Negative for injury and deformity, Skin: Negative for injury, rash, and discoloration, Neuro: Negative for headache, weakness, numbness, tingling, and seizure, Psych: Negative for depression, anxiety, suicide ideation, homicidal ideation, and hallucinations, Allergy/Immunology: Negative for hives, rash, and allergies, Endocrine: Negative for neck swelling, polydipsia, polyuria, polyphagia, and marked weight changes, Hematologic/Lymphatic: Negative for swollen nodes, abnormal bleeding, and unusual bruising. 17:35 : Positive for pelvic pain. Exam: 17:35 Constitutional: This is a well developed, well nourished patient who is awake, alert, moshe and in no acute distress. Head/Face: Normocephalic, atraumatic. Eyes: Pupils equal round and reactive to light, extra-ocular motions intact. Lids and lashes normal. Conjunctiva and sclera are non-icteric and not injected. Cornea within normal limits. Periorbital areas with no swelling, redness, or edema. ENT: Nares patent. No nasal discharge, no septal abnormalities noted. Tympanic membranes are normal and external auditory canals are clear. Oropharynx with no redness, swelling, or masses, exudates, or evidence of obstruction, uvula midline. Mucous membranes moist. Neck: Trachea midline, no thyromegaly or masses palpated, and no cervical lymphadenopathy. Supple, full range of motion without nuchal rigidity, or vertebral point tenderness. No Meningismus. Chest/axilla: Normal chest wall appearance and motion. Nontender with no deformity. No lesions are appreciated. Cardiovascular: Regular rate and rhythm with a normal S1 and S2. No gallops, murmurs, or rubs. Normal PMI, no JVD. No pulse deficits. Respiratory: Lungs have equal breath sounds bilaterally, clear to auscultation and percussion. No rales, rhonchi or wheezes noted. No increased work of breathing, no retractions or nasal flaring. Back: No spinal tenderness. No costovertebral tenderness. Full range of motion. Skin: Warm, dry with normal turgor. Normal color with no rashes, no lesions, and no evidence of cellulitis. MS/ Extremity: Pulses equal, no cyanosis. Neurovascular intact. Full, normal range of motion. Neuro: Awake and alert, GCS 15, oriented to person, place, time, and situation. Cranial nerves II-XII grossly intact. Motor strength 5/5 in all extremities. Sensory grossly intact. Cerebellar exam normal. Normal gait. 17:35 Abdomen/GI: Inspection: distension, that is mild, Bowel sounds: normal, Palpation: moderate abdominal tenderness, in the suprapubic area, right lower quadrant and left lower quadrant, Liver: no appreciated palpable abnormalities, Hernia: not appreciated. Vital Signs: 17:09 BP 123 / 77; Pulse 85; Resp 16; Temp 98.5; Pulse Ox 99% ; Weight 127.01 kg; Height 5 bp ft. 9 in. (175.26 cm); 17:13 BP 112 / 78; Pulse 90; Resp 17; Pulse Ox 100% ; bp 17:53 BP 128 / 76; Pulse 78; Resp 16; Pulse Ox 97% ; bp 19:27 BP 122 / 99; Pulse 91; Resp 17 S; Pulse Ox 97% on R/A; jd3 17:09 Body Mass Index 41.35 (127.01 kg, 175.26 cm) bp MDM: 16:41 Patient medically screened. moshe 17:38 Data reviewed: vital signs, nurses notes, lab test result(s), radiologic studies, CT moshe scan, ultrasound. 19:03 Differential diagnosis: nonspecific abdominal pain, uterine fibroids, urinary tract moshe infection, appendicitis, bowel obstruction. Data interpreted: Pulse oximetry: on room air is 97 %. Counseling: I had a detailed discussion with the patient and/or guardian regarding: the historical points, exam findings, and any diagnostic results supporting the discharge/admit diagnosis, lab results, the need for outpatient follow up, for definitive care, an OB/Gyne specialist. ED course: explained all results, patient will follow up. 11/02 17:28 Order name: Basic Metabolic Panel; Complete Time: 18:50 [facility] 11/02 17:28 Order name: CBC with Diff; Complete Time: 18:39 [facility] 11/02 17:28 Order name: Hepatic Function; Complete Time: 18:50 [facility] 11/02 17:28 Order name: Lipase; Complete Time: 18:50 [facility] 11/02 17:28 Order name: Urine Culture [facility] 11/02 18:10 Order name: Urine Dipstick--Ancillary (enter results); Complete Time: 18:15 11/02 17:28 Order name: IV Saline Lock; Complete Time: 17:55 [facility] 11/02 17:28 Order name: US Transvaginal Study (Probe) [facility] 11/02 17:39 Order name: CT Abd/Pelvis - IV Contrast Only: iv only [facility] 11/02 18:10 Order name: Urine --Ancillary (enter results); Complete Time: 18:15 bd 11/02 18:46 Order name: CREATININE WHOLE BLOOD; Complete Time: 18:50 [facility] 11/02 17:28 Order name: Labs collected and sent; Complete Time: 17:55 [facility] 11/02 17:28 Order name: Urine Dipstick-Ancillary (obtain specimen); Complete Time: 17:55 [facility] 11/02 17:28 Order name: Urine Test (obtain specimen); Complete Time: 17:55 [facility] Administered Medications: 17:50 Drug: NS 0.9% 1000 ml Route: IV; Rate: 1 bolus; Site: right antecubital; bp 17:50 Drug: morphine 2 mg Route: IVP; Site: right antecubital; bp 17:50 Drug: Zofran (Ondansetron) 4 mg Route: IVP; Site: right antecubital; bp 17:52 Drug: morphine 2 mg Route: IVP; Site: right antecubital; bp Disposition: 11/03/19 19:02 Discharged to Home. Impression: Pelvic and perineal pain, Amenorrhea, unspecified. - Condition is Stable. - Discharge Instructions: Pelvic Pain, Female, Pelvic Pain, Female, [id number]. - Prescriptions for Diclofenac Sodium 75 mg Oral Tablet, Delayed Release (E.C.) - take 1 tablet by ORAL route 2 times per day; 20 tablet. - Medication Reconciliation Form, Thank You Letter, Antibiotic Education, Prescription Opioid Use form. - Follow up: Private Physician; When: 2 - 3 days; Reason: Recheck today's complaints, Continuance of care, Re-evaluation by your physician. Follow up: Manjula Nicole; When: 2 - 3 days; Reason: Recheck today's complaints, Re-evaluation by your physician. - Problem is new. - Symptoms have improved. Signatures: Dispatcher [employer] [facility] Олег Nieves MD MD cha Davies, Jonathon RN RN Tripp Mascorro RN RN bp Corrections: (The following items were deleted from the chart) 19:05 19:02 11/03/2019 19:02 Discharged to Home. Impression: Pelvic and perineal pain. [facility] Condition is Stable. Discharge Instructions: Pelvic Pain, Female, Pelvic Pain, Female, [id number]. Prescriptions for Diclofenac Sodium 75 mg Oral Tablet, Delayed Release (E.C.) - take 1 tablet by ORAL route 2 times per day; 20 tablet. and Forms are Medication Reconciliation Form, Thank You Letter, Antibiotic Education, Prescription Opioid Use. Follow up: Private Physician; When: 2 - 3 days; Reason: Recheck today's complaints, Continuance of care, Re-evaluation by your physician. Follow up: Manjula Nicole; When: 2 - 3 days; Reason: Recheck today's complaints, Re-evaluation by your physician. Problem is new. Symptoms have improved. [facility] 19:28 19:05 11/03/2019 19:02 Discharged to Home. Impression: Pelvic and perineal pain; jd3 Amenorrhea, unspecified. Condition is Stable. Discharge Instructions: Pelvic Pain, Female, Pelvic Pain, Female, [id number]. Prescriptions for Diclofenac Sodium 75 mg Oral Tablet, Delayed Release (E.C.) - take 1 tablet by ORAL route 2 times per day; 20 tablet. and Forms are Medication Reconciliation Form, Thank You Letter, Antibiotic Education, Prescription Opioid Use. Follow up: Private Physician; When: 2 - 3 days; Reason: Recheck today's complaints, Continuance of care, Re-evaluation by your physician. Follow up: Manjula Nicole; When: 2 - 3 days; Reason: Recheck today's complaints, Re-evaluation by your physician. Problem is new. Symptoms have improved. [facility]
[2019-11-03 19:47] VITALS: TEMP 98.5
[2019-11-03 19:50] VITALS: O2SAT 97
[2019-11-03 19:51] VITALS: BP 122/99
== END 2019-11-03 19:28 | disposition home or self-care (01) ==
LOC: ER 16:17
DX: N91.2 Amenorrhea, unspecified (principal)
CPT/HCPCS: 36415; 74177; 76830; 80048; 80076; 81003; 81025; 82565; 83690; 85025; 87086; 87088; 96374; 96375; 99284; J2405; J7030; Q9967

== ENCOUNTER 2020-03-16 06:31 | Emergency (ER) | payer SELFPAY ==
--- OUTSIDE RECORDS SUMMARY | 2020-03-16 06:33 | XMS REPORT | Clinical Summary ---
:1990 Author Organization [facility] Address [address] [place] [address] Care Team Providers Name Role Phone Pcp [...] Assigned at Date Recorded Not on file Last Filed Vital Signs Not on file Plan of Treatment Health Maintenance Due Date Last Done Comments PNEUMOCOCCAL VACCINE 0-64 YRS (1 of 1 - PPSV23) 1994 LIPID PANEL 2008 CERVICAL CANCER SCREENING PAP ONLY (Age 21-65) 2009 INFLUENZA VACCINE (#1) 2019 Results Not on fileafter 03/16/2019
--- OUTSIDE RECORDS SUMMARY | 2020-03-16 06:33 | XMS REPORT | Clinical Summary ---
:1990 Author Organization [facility] Address [address] [place] [address] Care Team Providers Name Role Phone Asked, No Pcp Primary Care Provider Unavailable Allergies Active Allergy Reactions Severity Noted Date Comments Diphenhydramine Hcl Hives 03/06/2018 Medications Medication Sig Dispensed Refills Start Date End Date Status DM/PE/acetaminophen/doxyl Take by mouth. 0 Active amine (VICKS DAYQUIL-NYQUIL ORAL) chlorpheniramine/dextrome Take by mouth. 0 Active pascual (ROBITUSSIN COUGH & COLD ORAL) Active Problems Not on file Surgical History Surgery Date Site/Laterality Comments CHOLECYSTECTOMY Social History Tobacco Use Types Packs/Day Years Used Date Current Every Day Smoker Smokeless Tobacco: Never Used Sex Assigned at Date Recorded Not on file Last Filed Vital Signs Not on file Plan of Treatment Health Maintenance Due Date Last Done Comments CERVICAL CANCER SCREENING 2009 INFLUENZA VACCINE 10/31/2019 Results Not on fileafter 03/16/2019 Advance Directives For more information, please contact: [phone] Type Date Recorded Patient Display Specialist Explanati on Advance Directives, Living Will 03/06/2018 9:21 AM and Medical Power of Treasury Accountant
--- OUTSIDE RECORDS SUMMARY | 2020-03-16 06:34 | XMS REPORT | Continuity of Care Document ---
:1990 Author Organization [facility] t Address [address] [place] [address] Care Team Providers Name Role Phone Asked, [...] Comments Source History of tobacco Cigarette Smoker [facility] Sex Assigned At [facility] Alcohol Comment 2018-03-06 2018-03-06 [facility] 00:00:00 00:00:00 [employer] Cigarettes smoked 2017-09-10 2017-09-10 [facility] - current (pack per 00:00:00 00:00:00 [facility] day) - Reported Tobacco use and 2017-09-10 2017-09-10 Never used [facility] - exposure 00:00:00 00:00:00 [facility] Alcohol intake 2017-09-10 2017-09-10 Current drinker [facility] - 00:00:00 00:00:00 of [facility] (finding) Smoking Status Start Date Stop Date Source Current every day smoker 2017-09-10 00:00:00 [facility] Medications Ordered Filled Start Stop Current Ordering [...] Planned Date Details Comments Source Future Scheduled 2019-12-01 INFLUENZA VACCINE (#1) [facility] - Test 00:00:00 [code = INFLUENZA Medical Ce nter VACCINE (#1)] Future Scheduled 2019-10-31 INFLUENZA VACCINE [place] [facility] [employer] Test 00:00:00 [code = INFLUENZA VACCINE] Future Scheduled 2009 [facility] for [facility] Test 00:00:00 malignant neoplasm of cervix (procedure) [code = 314543170] Future Scheduled [address] [facility] - Test 00:00:00 malignant neoplasm of [facility]ica l Center cervix (procedure) [code = 387540905] Future Scheduled [address] [facility] - Test 00:00:00 (procedure) [code = [facility] [id number]] Future Scheduled [address] [facility] - Test 00:00:00 0-64 YRS (1 of 1 - Medical C enter PPSV23) [code = PNEUMOCOCCAL VACCINE 0-64 YRS (1 of 1 - PPSV23)] Results Test Description Test Time Test Comments Results Result Comments Source LIPASE 2017-09-10 14:27:00 Test Item Value Reference Range Interpretation Comme nts LIPASE (BEAKER) (test code = 749) 21 U/L 8-78 COMPREHENSIVE METABOLIC [id number] 14:27:00 Test Item Value Reference Range Interpretation [...] PATIEN TS. CBC W/PLT COUNT & AUTO [id number] 14:06:00 Test Item Value Reference Range Interpretation [...] 0.00-0.20 (test code = 417) URINALYSIS W/ [id number] 13:09:00 Test Item Value Reference Range Interpretation [...] code = 516) SOURCE(BEAKER) (test code = 279) SCREEN, [id number] 13:04:00 Test Item Value Reference Range Interpretation Comments TEST URINE (BEAKER) (test Negative code = 583) SCREEN, [id number] 21:36:00 Test Item Value Reference Range Interpretation Comments TEST URINE (BEAKER) (test Negative code = 583) URINALYSIS W/ REFLEX URINE [id number] 21:36:00 Test Item Value Reference Range Interpretation [...]
[2020-03-16 07:32] LABS: ALT/SGPT 53 U/L (12-78); AST/SGOT 21 U/L (15-37); Albumin 3.7 g/dL (3.4-5.0); Alkaline Phosphatase 95 U/L (45-117); BUN Blood Urea Nitrogen 16 mg/dL (7-18); Bicarbonate 25 mmol/L (21-32); Bilirubin Direct 0.1 mg/dL (0-0.2); Bilirubin Total 0.4 mg/dL (0.2-1.0); Glucose Level 119 mg/dL (74-106); Lipase 121 U/L (73-393); Protein, Total 7.5 g/dL (6.4-8.2); Sodium Level 140 mmol/L (136-145)
[2020-03-16 07:37] LABS: Absolute Lymphocytes (CBC) 2.9 K/uL (0.7-4.9); Basophils % 0.7 % (0-1.3); Hematocrit 43.1 % (36.0-45.0); Lymphocytes % 24.4 % (15.3-44.8); MPV 9.7 fL (7.6-11.3); RBC Red Blood Cell Count 4.94 M/uL (3.86-4.86)
--- NOTE | 2020-03-16 07:37 | ER ---
Nurse's Notes [facility] Name: Martina Morales Age: 29 yrs Sex: Female : 1990 Arrival Date: 03/16/2020 Time: 06:33 Bed 5 Private MD: Diagnosis: Abdominal tenderness;Abdominal and pelvic pain Presentation: 03/16 06:40 Chief complaint: Patient states: Im having pain in my cervical area, described as sharp sg and stabbing, non radiating, reports vaginal bleeding that is bright red, spotty, no other symptoms reported for triage at this time. pt reports LMP nine months ago, with a possibility of being . Coronavirus screen: Client denies travel out of the [place] in the last 14 days. At this time, the client does not indicate any symptoms associated with coronavirus-19. Ebola Screen: Patient negative for fever greater than or equal to 101.5 degrees Fahrenheit, and additional compatible Ebola Virus Disease symptoms Patient denies exposure to infectious person. Patient denies travel to an Ebola-affected area in the 21 days before illness onset. No symptoms or risks identified at this time. Initial Sepsis Screen: Does the patient meet any 2 criteria? No. Patient's initial sepsis screen is negative. Does the patient have a suspected source of infection? No. Patient's initial sepsis screen is negative. Risk Assessment: Do you want to hurt yourself or someone else? Patient reports no desire to harm self or others. Onset of symptoms was March 16, 2020. Care prior to arrival: None. Transition of care: patient was not received from another setting of care. 06:40 Method Of Arrival: Ambulatory sg 06:40 Acuity: JORGE 3 sg Triage Assessment: 07:00 General: Appears in no apparent distress. comfortable, Behavior is calm, cooperative. 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 - Social history:: Smoking status: Patient reports the use of cigarette tobacco products, smokes one pack cigarettes per day. - Family history:: not pertinent. Screenin:58 Abuse screen: Denies threats or abuse. Denies injuries from another. Nutritional mg2 screening: No deficits noted. Tuberculosis screening: No symptoms or risk factors identified. Fall Risk IV access (20 points). Assessment: 06:58 Pain: Complains of pain in abdomen. Neuro: Level of Consciousness is awake, alert, mg2 obeys commands, Oriented to person, place, time, situation. Cardiovascular: Capillary refill < 3 seconds Patient's skin is warm and dry. Respiratory: Airway is patent Respiratory effort is even, unlabored, Respiratory pattern is regular, symmetrical. GI: Bowel sounds present X 4 quads. Abd is soft X 4 quads Reports lower abdominal pain. : Reports vaginal bleeding that is. EENT: No signs and/or symptoms were reported regarding the EENT system. Derm: Skin is intact, is healthy with good turgor, Skin is pink, warm \T\ dry. normal. Musculoskeletal: Circulation, motion, and sensation intact. Capillary refill < 3 seconds. 07:00 Reassessment: RECD REPORT FROM [place] AMEZQUITA. 29YO WF P/W ABDOMINAL PAIN, R/O . bp 07:39 Reassessment: Patient appears in no apparent distress at this time. Patient and/or tw2 family updated on plan of care and expected duration. Pain level reassessed. Patient is alert, oriented x 3, equal unlabored respirations, skin warm/dry/pink. Vital Signs: 06:40 Weight 136.08 kg (R); Height 5 ft. 9 in. (175.26 cm) (R); sg 06:43 BP 132 / 70; Pulse 78; Resp 18; Temp 97.7; Pulse Ox 100% on R/A; sg 06:40 Body Mass Index 44.30 (136.08 kg, 175.26 cm) sg ED Course: 06:33 Patient arrived in ED. cl3 06:40 Arm band placed on. sg 06:43 Triage completed. sg 06:44 Tutu Worley MD is Attending Physician. tw4 06:49 Roger Phan, BIA is Primary Nurse. mg2 06:57 No provider procedures requiring assistance completed. Inserted saline lock: 20 gauge mg2 in right antecubital area, using aseptic technique. Blood collected. 07:00 Patient has correct armband on for positive identification. mg2 07:06 Primary Nurse role handed off by Roger Phan, BIA bp 07:06 Tripp Rodriguez, RN is Primary Nurse. bp 07:14 Attending Physician role handed off by Tutu Worley MD cha 07:14 Олег Nieves MD is Attending Physician. moshe Administered Medications: No medications were administered Outcome: 07:37 Discharge ordered by . moshe 07:38 AMA AMA form signed tw2 07:39 Patient left the ED. tw2 Signatures: Pradeep Aleman, RN RN sg Олег Nieves MD MD cha Calderon, Audri, RN RN aa5 Tamanna Miller RN RN tw2 Tripp Rodriguez, RN RN bp Tutu Worley MD MD tw4 Roger Phan, BIA RN mg2 Norma Bills cl3 Corrections: (The following items were deleted from the chart) 07:42 07:42 Patient left the ED. aa5 aa5
--- NOTE | 2020-03-16 07:38 | EDPHYS ---
Physician Documentation [facility] Name: Martina Morales Age: 29 yrs Sex: Female : 1990 Arrival Date: 03/16/2020 Time: 06:33 Bed 5 Private MD: ED Physician Олег Nieves HPI: 03/16 07:31 This 29 yrs old Female presents to ER via Ambulatory with complaints of moshe Abdominal Pain. 07:31 The patient presents with pelvic pain. Onset: The symptoms/episode began/occurred 2 moshe day(s) ago. Modifying factors: The symptoms are alleviated by remaining still. Associated signs and symptoms: The patient has no apparent associated signs or symptoms. Severity of symptoms: At their worst the symptoms were mild, in the emergency department the symptoms are unchanged. 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 - Social history:: Smoking status: Patient reports the use of cigarette tobacco products, smokes one pack cigarettes per day. - Family history:: not pertinent. ROS: 07:31 Constitutional: Negative for fever, chills, and weight loss, Eyes: Negative for injury, moshe pain, redness, and discharge, ENT: Negative for injury, pain, and discharge, Neck: Negative for injury, pain, and swelling, Cardiovascular: Negative for chest pain, palpitations, and edema, Respiratory: Negative for shortness of breath, cough, wheezing, and pleuritic chest pain, Back: Negative for injury and pain, : Negative for injury, bleeding, discharge, and swelling, MS/Extremity: Negative for injury and deformity, Skin: Negative for injury, rash, and discoloration, Neuro: Negative for headache, weakness, numbness, tingling, and seizure, Psych: Negative for depression, anxiety, suicide ideation, homicidal ideation, and hallucinations, Allergy/Immunology: Negative for hives, rash, and allergies, Endocrine: Negative for neck swelling, polydipsia, polyuria, polyphagia, and marked weight changes. 07:31 Abdomen/GI: Positive for abdominal cramps, abdominal distension, of the suprapubic area. Exam: 07:31 Constitutional: This is a well developed, well nourished patient who is awake, alert, moshe and in no acute distress. Head/Face: Normocephalic, atraumatic. Eyes: Pupils equal round and reactive to light, extra-ocular motions intact. Lids and lashes normal. Conjunctiva and sclera are non-icteric and not injected. Cornea within normal limits. Periorbital areas with no swelling, redness, or edema. ENT: Nares patent. No nasal discharge, no septal abnormalities noted. Tympanic membranes are normal and external auditory canals are clear. Oropharynx with no redness, swelling, or masses, exudates, or evidence of obstruction, uvula midline. Mucous membranes moist. Neck: Trachea midline, no thyromegaly or masses palpated, and no cervical lymphadenopathy. Supple, full range of motion without nuchal rigidity, or vertebral point tenderness. No Meningismus. Chest/axilla: Normal chest wall appearance and motion. Nontender with no deformity. No lesions are appreciated. Cardiovascular: Regular rate and rhythm with a normal S1 and S2. No gallops, murmurs, or rubs. Normal PMI, no JVD. No pulse deficits. Respiratory: Lungs have equal breath sounds bilaterally, clear to auscultation and percussion. No rales, rhonchi or wheezes noted. No increased work of breathing, no retractions or nasal flaring. Back: No spinal tenderness. No costovertebral tenderness. Full range of motion. Skin: Warm, dry with normal turgor. Normal color with no rashes, no lesions, and no evidence of cellulitis. MS/ Extremity: Pulses equal, no cyanosis. Neurovascular intact. Full, normal range of motion. Neuro: Awake and alert, GCS 15, oriented to person, place, time, and situation. Cranial nerves II-XII grossly intact. Motor strength 5/5 in all extremities. Sensory grossly intact. Cerebellar exam normal. Normal gait. Psych: Awake, alert, with orientation to person, place and time. Behavior, mood, and affect are within normal limits. 07:31 Abdomen/GI: Inspection: abdomen appears normal, distension, that is moderate, Bowel sounds: normal, Palpation: Liver: no appreciated palpable abnormalities, Hernia: not appreciated. Vital Signs: 06:40 Weight 136.08 kg (R); Height 5 ft. 9 in. (175.26 cm) (R); sg 06:43 BP 132 / 70; Pulse 78; Resp 18; Temp 97.7; Pulse Ox 100% on R/A; sg 06:40 Body Mass Index 44.30 (136.08 kg, 175.26 cm) sg MDM: 07:14 Patient medically screened. [facility] 07:35 Differential diagnosis: ectopic , ovarian cyst, ectopic , pelvic moshe inflammatory disease, uterine fibroids. Data reviewed: vital signs, nurses notes, lab test result(s). 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 rate is 78 beats/min, rhythm is regular, Pulse oximetry: is not applicable for this patient encounter. Test interpretation: by ED physician or midlevel provider: none. Counseling: I had a detailed discussion with the patient and/or guardian regarding: the historical points, exam findings, and any diagnostic results supporting the discharge/admit diagnosis, lab results, radiology results. 07:38 ED course: pt wants no blood work done, wants to go see her doctor now, dr osullivan. [facility] 03/16 06:49 Order name: Basic Metabolic Panel; Complete Time: 07:37 tw 03/16 06:49 Order name: CBC with Diff [facility] 03/16 06:49 Order name: Hepatic Function; Complete Time: 07:37 tw 03/16 06:49 Order name: Lipase; Complete Time: 07:37 [facility] 03/16 06:55 Order name: Urine Dipstick--Ancillary (enter results) [facility] 03/16 06:55 Order name: Urine --Ancillary (enter results) [facility] 03/16 06:49 Order name: IV Saline Lock; Complete Time: 06:57 [facility] 03/16 06:49 Order name: Labs collected and sent; Complete Time: 06:57 [facility] 03/16 07:27 Order name: NPO [facility] 03/16 07:27 Order name: Urine Dipstick-Ancillary (obtain specimen); Complete Time: 07:31 [facility] Administered Medications: No medications were administered Disposition: 03/16/20 07:37 Discharged to Home. Impression: Abdominal tenderness, Abdominal and pelvic pain. - Condition is Stable. - Discharge Instructions: Abdominal Pain, Adult, Pelvic Pain, Female. - Prescriptions for Vitamin 27- 0.8 mg Oral Tablet - take 1 tablet by ORAL route once daily; 30 tablet. - Medication Reconciliation Form, Thank You Letter, Antibiotic Education, Prescription Opioid Use form. - Follow up: Private Physician; When: Upon discharge from the Emergency Department; Reason: Recheck today's complaints, Continuance of care, Re-evaluation by your physician. - Problem is new. - Symptoms have improved. Signatures: Dispatcher [employer] EDMS Pradeep Aleman RN Олег Lemons MD MD cha Calderon, Audri, RN RN aa5 Tamanna Miller RN RN tw2 Tutu Worley MD MD tw4 Corrections: (The following items were deleted from the chart) 07:39 07:37 03/16/2020 07:37 Discharged to Home. Impression: Abdominal tenderness; Abdominal tw2 and pelvic pain. Condition is Stable. Forms are Medication Reconciliation Form, Thank You Letter, Antibiotic Education, Prescription Opioid Use. Follow up: Private Physician; When: Upon discharge from the Emergency Department; Reason: Recheck today's complaints, Continuance of care, Re-evaluation by your physician. Problem is new. Symptoms have improved. [facility] 07:42 07:39 03/16/2020 07:37 Discharged to Home. Impression: Abdominal tenderness; Abdominal aa5 and pelvic pain. Condition is Stable. Discharge Instructions: Abdominal Pain, Adult, Pelvic Pain, Female. Prescriptions for Vitamin 27-0.8 mg Oral Tablet - take 1 tablet by ORAL route once daily; 30 tablet. and Forms are Medication Reconciliation Form, Thank You Letter, Antibiotic Education, Prescription Opioid Use. Follow up: Private Physician; When: Upon discharge from the Emergency Department; Reason: Recheck today's complaints, Continuance of care, Re-evaluation by your physician. Problem is new. Symptoms have improved. tw2
[2020-03-16 07:54] LABS: Urine Blood TRACE (NEG); Urine Glucose NEGATIVE (NEG); Urine Protein NEGATIVE (NEG); Urine Specific Gravity >1.030 (1.005-1.030); Urine pH 5.5 (5.0-7.0)
[2020-03-18 00:51] VITALS: BP 132/70; TEMP 97.7; O2SAT 100
== END 2020-03-16 07:42 | disposition home or self-care (01) ==
LOC: ER 06:31
DX: R10.2 Pelvic and perineal pain (principal); F17.210 Nicotine dependence, cigarettes, uncomplicated
CPT/HCPCS: 36415; 80048; 80076; 81003; 81025; 83690; 85025; 99283

== ENCOUNTER 2021-09-26 13:58 | Emergency (ER) | payer SELFPAY ==
--- OUTSIDE RECORDS SUMMARY | 2021-09-26 14:01 | XMS REPORT | Continuity of Care Document ---
:1990 Author Organization [facility] t Address [address] [place] [address] Care Team Providers Name Role Phone CURLY DAWSON Attending Clinician Unavailable CURLY Attending Clinician Unavailable Problems This patient has no known problems. Allergies, Adverse Reactions, Alerts Allergy Allergy Status Severity Reaction(s) Onset Inactive Treating Comm ents Source Name Type Date Date Clinician NO KNOWN [facility] ALLERGIE [facility] Medications This patient has no known medications. Procedures This patient has no known procedures. Encounters Start End Encounter Admission Attending Care Care Encounter Source Date/Time Date/Time Type Type Clinicians Facility Department ID 2020-03-16 2020-03-16 Emergency X TULIO DAWSON ERT [id number] [facility] 08:35:00 08:35:00 [facility] Results Test Description Test Time Test Comments Results Result Comments Source LIPASE 2017-09-10 14:27:00 Test Item Value Reference Range Interpretation Comme nts LIPASE (BEAKER) (test code = 749) 21 U/L 8-78 COMPREHENSIVE METABOLIC [id number] 14:27:00 Test Item Value Reference Range Interpretation [...] PATIEN TS. CBC W/PLT COUNT & AUTO [id number] 14:06:00 Test Item Value Reference Range Interpretation [...] 0.00-0.20 (test code = 417) URINALYSIS W/ [id number] 13:09:00 Test Item Value Reference Range Interpretation [...] code = 516) SOURCE(BEAKER) (test code = 9448) SCREEN, [id number] 13:04:00 Test Item Value Reference Range Interpretation Comments TEST URINE (BEAKER) (test Negative code = 583) SCREEN, [id number] 21:36:00 Test Item Value Reference Range Interpretation Comments TEST URINE (BEAKER) (test Negative code = 583) URINALYSIS W/ REFLEX URINE [id number] 21:36:00 Test Item Value Reference Range Interpretation [...] code = 516) SOURCE(BEAKER) (test code = 2793)
[2021-09-26 15:29] LABS: Urine Blood Negative (Negative); Urine Glucose Negative (Negative); Urine Protein Negative (Negative); Urine Specific Gravity 1.025 (1.005-1.030)
[2021-09-26 15:36] LABS: Absolute Lymphocytes (CBC) 2.8 K/uL (0.7-4.9); Hematocrit 44.6 % (36.0-45.0); Lymphocytes % 21.8 % (15.3-44.8); MPV 9.4 fL (7.6-11.3)
[2021-09-26] MEDS ORDERED: NA CHLORIDE 0.9% 1,000 ML ONE (15:40)
[2021-09-26] MEDS ORDERED: FAMOTIDINE 20 MG/2 ML VIAL IV ONE (15:40)
[2021-09-26] MEDS ORDERED: ONDANSETRON 4 MG/2 ML VIAL ONE (15:40)
[2021-09-26 15:49] LABS: Albumin 3.8 g/dL (3.4-5.0); Bilirubin Total 0.7 mg/dL (0.2-1.0); Potassium 4.2 mmol/L (3.5-5.1); Protein, Total 7.5 g/dL (6.4-8.2)
[2021-09-26 15:53] LABS: Urine Specific Gravity/Preg 1.025 (1.005-1.030)
[2021-09-26 16:04] LABS: Urine Bacteria NONE SEEN /HPF (<20); Urine RBC <5 /HPF (NONE SEEN)
[2021-09-26] MEDS ORDERED: METOCLOPRAMIDE 10 MG/2mL INJ ONE (16:59)
--- NOTE | 2021-09-26 17:29 | ER ---
Nurse's Notes [facility] Name: Martina Morales Age: 30 yrs Sex: Female : 1990 Arrival Date: 09/26/2021 Time: 14:02 Bed 24 Private MD: Diagnosis: Nausea with vomiting, unspecified;Headache Presentation: 09/26 14:10 Chief complaint: Patient states: N/V that began this morning with dizziness. ss Coronavirus screen: Client denies travel out of the [place] in the last 14 days. Ebola Screen: Patient denies exposure to infectious person. Patient denies travel to an Ebola-affected area in the 21 days before illness onset. Initial Sepsis Screen: Does the patient meet any 2 criteria? No. Patient's initial sepsis screen is negative. Does the patient have a suspected source of infection? No. Patient's initial sepsis screen is negative. Risk Assessment: Do you want to hurt yourself or someone else? Patient reports no desire to harm self or others. Note Negative covid test just prior to arrival. Onset of symptoms was September 26, 2021. 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 - Social history:: Smoking status: Patient reports the use of cigarette tobacco products, smokes one-half pack cigarettes per day. Screenin:47 Abuse screen: Denies threats or abuse. Denies injuries from another. Nutritional jl7 screening: No deficits noted. Tuberculosis screening: No symptoms or risk factors identified. Fall Risk IV access (20 points). Total Erazo Fall Scale indicates No Risk (0-24 pts). Assessment: 15:15 General: Appears in no apparent distress. uncomfortable, Behavior is calm, cooperative, jl7 appropriate for age. Pain: Complains of pain in [place] Pain currently is 2 out of 10 on a pain scale. Is continuous. Neuro: Level of Consciousness is awake, alert, obeys commands, Oriented to person, place, time, situation. Cardiovascular: Patient's skin is warm and dry. Respiratory: Airway is patent Respiratory effort is even, unlabored, Respiratory pattern is regular, symmetrical. GI: Abdomen is round non-distended, obese, Reports nausea. Derm: Skin is pink, warm \T\ dry. 16:20 Reassessment: Pt given water for PO challenge and reports continued nausea, ERP jl7 notified. 17:00 Reassessment: Pt report decreased nausea and requests to be discharged. jl7 Vital Signs: 14:10 Weight 136.08 kg; Height 5 ft. 7 in. (170.18 cm); Pain 2/10; ss 14:12 Pulse 95; Resp 14; Temp 98.2(TE); Pulse Ox 98% on R/A; ss 14:14 BP 130 / 84; ss 15:33 BP 117 / 70 Supine; Pulse 87; jl7 15:34 BP 109 / 83 Sitting; Pulse 80; jl7 15:37 BP 114 / 90 Standing; Pulse 86; jl7 17:17 BP 121 / 83; Pulse 76; Resp 15; Pulse Ox 99% ; jl7 14:10 Body Mass Index 46.99 (136.08 kg, 170.18 cm) ED Course: 14:02 Patient arrived in ED. mr 14:03 Олег Knight, PA is PHCP. cp 14:03 Triston Ratliff MD is Attending Physician. cp 14:11 Triage completed. ss 14:12 Arm band placed on right wrist. ss 15:07 Rajendra Astorga, BIA is Primary Nurse. jl7 15:10 Initial lab(s) drawn, by tx, sent to lab. Urine collected: clean catch specimen, clear. jl7 Inserted saline lock: 20 gauge in right antecubital area, using aseptic technique. Blood collected. 15:47 Patient has correct armband on for positive identification. Bed in low position. Call jl7 light in reach. Side rails up X 1. Pulse ox on. NIBP on. 16:20 No provider procedures requiring assistance completed. jl7 17:49 IV discontinued, intact, bleeding controlled, No redness/swelling at site. Pressure jl7 dressing applied. Administered Medications: 06:55 Drug: Reglan (metoCLOPramide) 10 mg Route: IVP; Site: right antecubital; jl7 17:14 Follow up: Response: No adverse reaction; Nausea is decreased jl7 15:40 Drug: NS 0.9% 1000 ml Route: IV; Rate: 1 bolus; Site: right antecubital; jl7 15:40 Drug: Zofran (Ondansetron) 4 mg Route: IVP; Site: right antecubital; jl7 16:15 Follow up: Response: No adverse reaction; Nausea is decreased jl7 15:42 Drug: Pepcid (famotidine) 10 mg Route: IVP; Site: right antecubital; jl7 16:15 Follow up: Response: No adverse reaction jl7 Medication: 16:20 VIS not applicable for this client. jl7 Outcome: 17:28 Discharge ordered by . uriah 17:49 Discharged to home ambulatory. jl7 17:49 Condition: stable 17:49 Discharge instructions given to patient, Instructed on discharge instructions, follow up and referral plans. medication usage, Demonstrated understanding of instructions, follow-up care, medications, Prescriptions given X 2. 17:50 Patient left the ED. jl7 Signatures: Elo Valera Shelby, BIA RN Олег Hercules PA PA cp Leal, Jahala, RN RN beatriz
--- NOTE | 2021-09-26 17:29 | EDPHYS ---
Physician Documentation [facility] Name: Martina Morales Age: 30 yrs Sex: Female : 1990 Arrival Date: 09/26/2021 Time: 14:02 Bed 24 Private MD: ED Physician Triston Ratliff HPI: 09/26 15:10 This 30 yrs old Female presents to ER via Ambulatory with complaints of Vomiting, cp Headache. 15:10 The patient presents to the emergency department with nausea, that is moderate, cp vomiting, that is intermittent. Onset: The symptoms/episode began/occurred this morning. Possible causes: unknown. Associated signs and symptoms: Pertinent positives: intermittent headache, Pertinent negatives: abdominal pain, fever, GI bleeding. Severity of symptoms: in the emergency department the symptoms have improved mildly, patient denies headache. 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 - Social history:: Smoking status: Patient reports the use of cigarette tobacco products, smokes one-half pack cigarettes per day. ROS: 15:15 Constitutional: Negative for body aches, chills, fever, poor PO intake. cp 15:15 Eyes: Negative for injury, pain, redness, and discharge. cp 15:15 ENT: Negative for drainage from ear(s), ear pain, sore throat, difficulty swallowing, cp difficulty handling secretions. 15:15 Neck: Negative for pain with movement, pain at rest, stiffness. 15:15 Cardiovascular: Negative for chest pain, palpitations. 15:15 Respiratory: Negative for cough, shortness of breath, wheezing. 15:15 Abdomen/GI: Positive for nausea and vomiting, abdominal cramps, Negative for diarrhea, constipation, hematemesis. 15:15 Back: Negative for pain at rest, pain with movement. 15:15 : Negative for urinary symptoms. 15:15 Neuro: Positive for headache, Negative for altered mental status, syncope, weakness. 15:15 All other systems are negative. Exam: 15:20 Constitutional: The patient appears in no acute distress, alert, awake, cp non-diaphoretic, non-toxic, well developed, well nourished. 15:20 Head/Face: Normocephalic, atraumatic. cp 15:20 Eyes: Periorbital structures: appear normal, Pupils: equal, round, and reactive to cp light and accomodation, Extraocular movements: intact throughout, Conjunctiva: normal, no exudate, no injection, Sclera: no appreciated abnormality, Lids and lashes: appear normal, bilaterally. 15:20 ENT: External ear(s): are unremarkable, Ear canal(s): are normal, clear, TM's: dullness, bilaterally, Nose: is normal, Mouth: is normal, Posterior pharynx: Airway: no evidence of obstruction, patent, Tonsils: are normal in appearance, erythema, is not appreciated, exudate, is not appreciated. 15:20 Neck: ROM/movement: is normal, is supple, without pain, no range of motions limitations, no meningismus, Lymph nodes: no appreciated lymphadenopathy. 15:20 Chest/axilla: Inspection: normal. 15:20 Cardiovascular: Rate: normal, Rhythm: regular. 15:20 Respiratory: the patient does not display signs of respiratory distress, Respirations: normal, no use of accessory muscles, no retractions, labored breathing, is not present, Breath sounds: are clear throughout, no decreased breath sounds, no stridor, no wheezing. 15:20 Abdomen/GI: Inspection: obese Bowel sounds: active, all quadrants, Palpation: soft, in all quadrants, nontender, in all quadrants, rebound tenderness, is not appreciated, involuntary guarding, is not appreciated. 15:20 Back: CVA tenderness, is absent. 15:20 Neuro: Orientation: to person, place \T\ time. Mentation: is normal. Vital Signs: 14:10 Weight 136.08 kg; Height 5 ft. 7 in. (170.18 cm); Pain 2/10; ss 14:12 Pulse 95; Resp 14; Temp 98.2(TE); Pulse Ox 98% on R/A; ss 14:14 BP 130 / 84; ss 15:33 BP 117 / 70 Supine; Pulse 87; jl7 15:34 BP 109 / 83 Sitting; Pulse 80; jl7 15:37 BP 114 / 90 Standing; Pulse 86; jl7 17:17 BP 121 / 83; Pulse 76; Resp 15; Pulse Ox 99% ; jl7 14:10 Body Mass Index 46.99 (136.08 kg, 170.18 cm) ss MDM: 14:52 Patient medically screened. cp 15:30 Differential diagnosis: Nonspecific abd pain, gastritis, cholecystitis, pancreatitis, cp diverticulitis, viral gastroenteritis, gastroenteritis, migraine. 17:27 Data reviewed: vital signs, nurses notes, lab test result(s), and as a result, I will cp discharge patient. 17:28 Counseling: I had a detailed discussion with the patient and/or guardian regarding: the cp historical points, exam findings, and any diagnostic results supporting the discharge/admit diagnosis, lab results, to return to the emergency department if symptoms worsen or persist or if there are any questions or concerns that arise at home. 17:28 Response to treatment: the patient's symptoms have markedly improved after treatment, cp and as a result, I will discharge patient. 09/26 15:03 Order name: CBC with Diff; Complete Time: 15:48 09/26 15:48 Interpretation: Normal except: WBC 12.9; RBC 5.10; HGB 15.1; NEUT A 8.8. 09/26 15:03 Order name: CMP; Complete Time: 15:58 09/26 16:06 Interpretation: GLOB 3.7; A/G 1.0; Reviewed. 09/26 15:03 Order name: Lipase; Complete Time: 15:58 09/26 15:03 Order name: Urine Microscopic Only; Complete Time: 16:06 cp 09/26 15:29 Order name: Urine Dipstick-Ancillary; Complete Time: 15:48 EDMS 09/26 15:59 Interpretation: Reviewed. 09/26 15:34 Order name: Urine --Ancillary (enter results); Complete Time: 15:58 kj1 09/26 15:03 Order name: IV Saline Lock; Complete Time: 15:31 09/26 15:03 Order name: Labs collected and sent; Complete Time: 15:31 09/26 15:03 Order name: Urine Dipstick-Ancillary (obtain specimen); Complete Time: 15:31 cp 09/26 15:03 Order name: Urine Test (obtain specimen); Complete Time: 15:31 09/26 15:03 Order name: Orthostatics; Complete Time: 15:44 cp 09/26 16:07 Order name: PO challenge; Complete Time: 17:11 cp Administered Medications: 06:55 Drug: Reglan (metoCLOPramide) 10 mg Route: IVP; Site: right antecubital; jl7 17:14 Follow up: Response: No adverse reaction; Nausea is decreased jl7 15:40 Drug: NS 0.9% 1000 ml Route: IV; Rate: 1 bolus; Site: right antecubital; jl7 15:40 Drug: Zofran (Ondansetron) 4 mg Route: IVP; Site: right antecubital; jl7 16:15 Follow up: Response: No adverse reaction; Nausea is decreased jl7 15:42 Drug: Pepcid (famotidine) 10 mg Route: IVP; Site: right antecubital; jl7 16:15 Follow up: Response: No adverse reaction jl7 Disposition: 18:57 Co-signature as Attending Physician, Triston Ratliff MD. rn Disposition Summary: 09/26/21 17:28 Discharge Ordered Location: Home cp Problem: new cp Symptoms: have improved cp Condition: Stable cp Diagnosis - Nausea with vomiting, unspecified cp - Headache cp Followup: cp - With: Private Physician - When: 1 - 2 days - Reason: Worsening of condition Discharge Instructions: - Discharge Summary Sheet cp - General Headache Without Cause cp - Nausea and Vomiting, Adult cp Forms: - Medication Reconciliation Form cp - Thank You Letter cp - Antibiotic Education cp - Prescription Opioid Use cp - Work release form jl7 Prescriptions: - Pepcid 20 mg Oral Tablet - take 1 tablet by ORAL route every 12 hours for 5 days; 10 tablet; Refills: 0, cp Product Selection Permitted - Zofran 4 mg Oral Tablet - take 1 tablet by ORAL route every 12 hours As needed; 20 tablet; Refills: 0, cp Product Selection Permitted Signatures: Dispatcher [employer] EDTriston Garvin MD MD rn Smirch, Shelby, RN RN ss Page, Corey, PA PA Rajendra Shankar RN RN jl7 Corrections: (The following items were deleted from the chart) 18:26 15:10 Severity of symptoms: in the emergency department the symptoms have improved cp mildly, cp
[2021-09-26 18:31] VITALS: TEMP 98.2
[2021-09-26 18:38] VITALS: BP 121/83; O2SAT 99
== END 2021-09-26 17:50 | disposition home or self-care (01) ==
LOC: ER 13:58
DX: R11.2 Nausea with vomiting, unspecified (principal); R51.9 Headache, unspecified; F17.210 Nicotine dependence, cigarettes, uncomplicated
CPT/HCPCS: 36415; 80053; 81003; 81015; 81025; 83690; 85025; J2405; J2765; J3490; J7030

== ENCOUNTER 2023-12-11 19:37 | Emergency (ER) | payer SELFPAY ==
[2023-12-11 20:39] LABS: SARS-CoV-2 Antigen CONTROL BLUE LINE VIS/BG OK; SARS-CoV-2 Antigen Rapid Res Negative (Negative)
--- NOTE | 2023-12-11 21:18 | RAD REPORT ---
EXAM DESCRIPTION: Charles Single View12/11/2023 8:50 pm CLINICAL HISTORY: cough COMPARISON: 2019 FINDINGS: The lungs appear clear of acute infiltrate. The heart is normal size IMPRESSION: No acute abnormalities displayed
--- NOTE | 2023-12-11 21:22 | EDPHYS ---
Physician Documentation [facility] Name: Martina Morales Age: 33 yrs Sex: Female : 1990 Arrival Date: 12/11/2023 Time: 19:37 Bed 11 Private MD: ED Physician Carl Mercado HPI: 12/10 23:14 This 33 yrs old Female presents to ER via Ambulatory with complaints of Sore Throat, kb Congestion. 23:14 Patient is a 33-year-old female who presents for cough, congestion and sore throat that kb started this morning. Denies any aggravating or alleviating factors. Denies fever or chills, nausea vomiting or diarrhea.. 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 - Infectious Disease History:: Denies. - Social history:: Smoking status: Patient reports the use of cigarette tobacco products, smokes 0.33 packs per day. ROS: 23:13 Constitutional: As per HPI kb Exam: 23:13 Constitutional: This is a well developed, well nourished patient who is awake, alert, kb and in no acute distress. Head/Face: Normocephalic, atraumatic. ENT: Moist Mucous membranes Cardiovascular: Regular rate Abdomen/GI: Soft, non-tender. No distention Skin: Warm, dry with normal turgor. Normal color. MS/ Extremity: Pulses equal, no cyanosis. Neurovascular intact. Full, normal range of motion. Neuro: Awake and alert, GCS 15, oriented to person, place, time, and situation. Moves all extremities. Normal gait. 23:13 Respiratory: the patient does not display signs of respiratory distress, Respirations: normal, Breath sounds: wheezing: expiratory that is mild, is heard in the right middle lobe and right posterior middle lobe, Vital Signs: 20:04 BP 138 / 87; Pulse 85; Resp 16; Temp 98.1; Pulse Ox 98% on R/A; Weight 136.08 kg; cm10 Height 5 ft. 9 in. ; Pain 4/10; 21:49 BP 132 / 82; Pulse 89; Resp 16; Temp 98.1; Pulse Ox 98% ; me1 20:04 Body Mass Index 44.30 (136.08 kg, 175.26 cm) cm10 20:04 Pain Scale: Adult cm10 MDM: 19:59 Patient medically screened. kb 23:13 Differential diagnosis: COVID, flu, URI, strep, pneumonia. Data reviewed: vital signs, kb nurses notes. I considered the following discharge prescriptions or medication management in the emergency department I discussed and recommended Over The Counter medications, Antibiotics: At this time antibiotics are not recommended. Counseling: I had a detailed discussion with the patient and/or guardian regarding the historical points, exam findings, and any diagnostic results supporting the discharge/admit diagnosis, lab results, radiology results, the need for outpatient follow up, a family practitioner, to return to the emergency department if symptoms worsen or persist or if there are any questions or concerns that arise at home. 12/10 20:06 Order name: SARS RAPID; Complete Time: 20:40 cm10 12/10 20:06 Order name: Strep; Complete Time: 20:40 cm10 12/10 20:06 Order name: Flu; Complete Time: 20:40 cm10 12/10 20:42 Order name: Throat Culture EDMS 12/10 20:07 Order name: Chest Single View XRAY; Complete Time: 21:21 kb Administered Medications: 21:34 Drug: Albuterol Inhalation 2.5 mg Inhalation once Route: Inhalation; me1 21:49 Follow up: Response: No adverse reaction; Wheezing diminished me1 21:34 Drug: Ipratropium Inhalation Aerosol 0.5 mg Inhalation once Route: Inhalation; me1 21:48 Follow up: Response: No adverse reaction; Wheezing diminished me1 Disposition: 12/11 03:25 Co-signature as Attending Physician, Carl Mercado MD I agree with the assessment sp4 and plan of care. I reviewed the patient's care provided by the Advanced Practice Provider and agree with the diagnosis and treatment plan. Disposition Summary: 12/11/23 21:22 Discharge Ordered Notes: Location: Home kb Condition: Stable kb Diagnosis - Acute upper respiratory infection, unspecified kb Followup: kb - With: Emergency Department - When: As needed - Reason: Worsening of condition Followup: kb - With: Private Physician - When: 2 - 3 days - Reason: Recheck today's complaints, Continuance of care, Re-evaluation by your physician Discharge Instructions: - Discharge Summary Sheet kb - Upper Respiratory Infection, Adult, [id number] kb - Viral Respiratory Infection, [id number] kb Forms: - Medication Reconciliation Form kb - Antibiotic Education kb - Prescription Opioid Use kb - Patient Portal Instructions kb - Leadership Thank You Letter kb - Work release form me1 Signatures: Dispatcher [employer] EDTiera Daugherty, ELECTRICIAN TELEPHONE-C JORDI-Carl Gilbert MD MD sp4 Aicha Ashby RN RN cm10 Juliet Ferguson RN RN me1
--- NOTE | 2023-12-11 21:22 | ER ---
Nurse's Notes [facility] Name: Martina Morales Age: 33 yrs Sex: Female : 1990 Arrival Date: 12/11/2023 Time: 19:37 Bed 11 Private MD: Diagnosis: Acute upper respiratory infection, unspecified Presentation: 12/10 20:04 Chief complaint: Patient states: Cough, congestion and sore throat onset today. cm10 Coronavirus screen: Client denies travel out of the [place] in the last 14 days. Ebola Screen: Patient denies travel to an Ebola-affected area in the 21 days before illness onset. No symptoms or risks identified at this time. Initial Sepsis Screen: Does the patient meet any 2 criteria? No. Patient's initial sepsis screen is negative. Does the patient have a suspected source of infection? No. Patient's initial sepsis screen is negative. Risk Assessment: Do you want to hurt yourself or someone else? Patient reports no desire to harm self or others. Onset of symptoms was December 11, 2023. 20:04 Method Of Arrival: Ambulatory cm10 20:04 Acuity: JORGE 4 cm10 Triage Assessment: 20:05 General: Appears in no apparent distress. uncomfortable, Behavior is calm, cooperative. cm10 Neuro: No deficits noted. Level of Consciousness is awake, alert, obeys commands, Oriented to person, place, time, situation, Appropriate for age. Respiratory: No deficits noted. Airway is patent Respiratory effort is even, unlabored, Respiratory pattern is regular, symmetrical. 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 - Infectious Disease History:: Denies. - Social history:: Smoking status: Patient reports the use of cigarette tobacco products, smokes 0.33 packs per day. Screenin:[address] [facility] ED Fall Risk Assessment (Adult) History of falling in the last 3 months, me1 including since admission No falls in past 3 months (0 pts) Confusion or Disorientation No (0 pts) Intoxicated or Sedated No (0 pts) Impaired Gait No (0 pts) Mobility Assist Device Used No (0 pt) Altered Elimination No (0 pt) Score/Fall Risk Level 0 - 2 = Low Risk Maintained a safe environment, Provided non-skid footwear, Hourly rounding (assess needs \T\ fall precautionary measures) done. Abuse screen: Denies threats or abuse. Nutritional screening: No deficits noted. Tuberculosis screening: No symptoms or risk factors identified. Assessment: 21:36 General: Appears ill, well groomed, well developed, well nourished, Behavior is calm, me1 cooperative, appropriate for age, Reports Cough, congestion and sore throat onset today. Pain: Complains of pain in throat Pain does not radiate. Pain currently is 3 out of 10 on a pain scale. Quality of pain is described as tender, Pain began gradually, Is continuous. Neuro: Level of Consciousness is awake, alert, obeys commands, Oriented to person, place, time, situation, Appropriate for age. Cardiovascular: Patient's skin is warm and dry. Respiratory: Airway is patent Respiratory effort is even, unlabored, Respiratory pattern is regular, symmetrical, Breath sounds with wheezes bilaterally. Respiratory: Reports cough that is persistent congestion. GI: No signs and/or symptoms were reported involving the gastrointestinal system. : No signs and/or symptoms were reported regarding the genitourinary system. EENT: Throat is reddened. Derm: Skin is intact, is healthy with good turgor, Skin is pink, warm \T\ dry. Musculoskeletal: No signs and/or symptoms reported regarding the musculoskeletal system. Vital Signs: 20:04 BP 138 / 87; Pulse 85; Resp 16; Temp 98.1; Pulse Ox 98% on R/A; Weight 136.08 kg; cm10 Height 5 ft. 9 in. ; Pain 4/10; 21:49 BP 132 / 82; Pulse 89; Resp 16; Temp 98.1; Pulse Ox 98% ; me1 20:04 Body Mass Index 44.30 (136.08 kg, 175.26 cm) cm10 20:04 Pain Scale: Adult cm10 ED Course: 19:39 Patient arrived in ED. jj6 19:59 [facility]C [facility] kb 19:59 Carl Mercado MD is Attending Physician. kb 20:05 Triage completed. cm10 20:05 Arm band placed on Patient placed in waiting room. cm10 20:09 Flu Sent. cm10 20:09 Strep Sent. cm10 20:09 SARS RAPID Sent. cm10 20:09 COVID swab sent to lab. Flu and/or RSV swab sent to lab. Strep swab sent to lab. cm10 20:52 Chest Single View XRAY In Process Unspecified. EDMS 21:29 Juliet Ferguson, RN is Primary Nurse. me1 21:36 Patient has correct armband on for positive identification. Bed in low position. Call me1 light in reach. Side rails up X2. Provided Education on: POC. Verbalized understanding. . 21:36 No provider procedures requiring assistance completed. Patient did not have IV access me1 during this emergency room visit. Administered Medications: 21:34 Drug: Albuterol Inhalation 2.5 mg Inhalation once Route: Inhalation; me1 21:49 Follow up: Response: No adverse reaction; Wheezing diminished me1 21:34 Drug: Ipratropium Inhalation Aerosol 0.5 mg Inhalation once Route: Inhalation; me1 21:48 Follow up: Response: No adverse reaction; Wheezing diminished me1 Medication: 21:36 VIS not applicable for this client. me1 Outcome: 21:22 Discharge ordered by . kb 21:51 Discharged to home ambulatory, me1 21:51 Condition: stable 21:51 Discharge instructions given to patient, Instructed on discharge instructions, follow up and referral plans. Demonstrated understanding of instructions, follow-up care, 21:51 Patient left the ED. me1 Signatures: Dispatcher [employer] EDCT Tiera Best, HAND STRIPER-C HAND STRIPER-Sarah Beth Camara jj6 Aicha Ashby, RN RN cm10 Juliet Ferguson, RN RN me1 Corrections: (The following items were deleted from the chart) 21:36 20:04 Chief complaint: Patient states: Cough, congestion and sore throat onset today. me1 cm10
[2023-12-11] MEDS ORDERED: ALBUTEROL 2.5 MG/3 ML NEB SOL ONE (21:28)
[2023-12-11] MEDS ORDERED: IPRATROPIUM BROM 0.5MG/2.5ML ONE (21:28)
[2023-12-11 21:57] VITALS: TEMP 98.1; O2SAT 98
[2023-12-11 21:58] VITALS: BP 132/82
== END 2023-12-11 21:51 | disposition home or self-care (01) ==
LOC: ER 19:37
DX: J06.9 Acute upper respiratory infection, unspecified (principal); Z11.52 Encounter for screening for COVID-19
CPT/HCPCS: 36415; 71045; 87070; 87081; 87804; 87811; 99284; J7613; J7644